=== PATIENT | male | born 1955 | race Caucasian/White ===

== ENCOUNTER 2018-02-09 08:33 | Outpatient (CLI) | payer MEDICARE ==
--- NOTE | 2018-02-09 14:59 | RAD ---
TWO VIEWS CHEST: Date: 02-09-18 Comparison: 10-06-16 History: Shortness of breath. FINDINGS: Cardiac silhouette is prominent and stable. Mild pulmonary vascular prominence is noted. There is no pneumothorax or pleural fluid. There is no focal consolidation or alveolar edema. There is multilevel thoracic spine disc space narrowing and anterior osteophyte formation. The lungs appear hyperinflated on the lateral view, a stable finding. IMPRESSION: Stable chronic findings as described above. POS: [facility]
== END 2018-02-09 08:34 | disposition home or self-care (01) ==
LOC: RAD 08:33
PROVIDERS: ATTEND Internal Medicine Pulmonary Disease
DX: R06.00 Dyspnea, unspecified (principal); I51.7 Cardiomegaly; M48.04 Spinal stenosis, thoracic region; M25.78 Osteophyte, vertebrae
CPT/HCPCS: 71046

== ENCOUNTER 2018-02-26 15:39 | Observation (INO) | payer MEDICARE ==
[2018-02-26 16:22] LABS: Mean Corpuscular HGB CONC 35.1 g/dL (32.0-36.0); Mean Corpuscular Volume 96.7 fL (78.0-98.0); Mean Platelet Volume 7.9 fL (7.4-10.4); Platelet Count 105 thou/uL (130-400); RBC Distribution Width 12.9 % (11.5-14.5); Red Blood Cell (RBC) Count 3.25 mill/uL (4.70-6.10); White Blood Cell (WBC) Count 2.5 thou/uL (4.8-10.8)
--- NOTE | 2018-02-26 16:23 | RAD ---
PORTABLE CHEST ONE VIEW: 02/26/18 at 3:22 p.m. HISTORY: Chest pain. FINDINGS/IMPRESSION: Comparison is made with exam of 10/06/16. The heart is enlarged. The aorta is tortuous. The lungs are well expanded without lobar consolidation , pneumothoraces, barak pulmonary edema or large effusions. POS: [facility]
[2018-02-26 16:42] LABS: Band 7 % (5-11); Lymphocytes 23 % (21-51); MDiff Complete? YES; Monocytes 13 % (0-10); Neutrophil 57 % (42-75); PLT Morphology Comment Appears Decreased
[2018-02-26 16:43] LABS: ALT (SGPT) 27 U/L (8-55); AST (SGOT) 34 U/L (5-34); Albumin 4.1 g/dL (3.4-4.8); Alkaline Phosphatase 37 U/L (40-150); Anion Gap 14 mmol/L (10-20); BUN (Urea Nitrogen) 25 mg/dL (8.4-25.7); CK (CPK) 255 U/L (30-200); Calc. Creatinine Clearance 0 mL/min (70-130); Calcium 9.7 mg/dL (7.8-10.44); Carbon Dioxide 22 mmol/L (23-31); Chloride 108 mmol/L (98-107); Estimated GFR-MDRD 54; Glucose 96 mg/dL (80-115); Lipase 63 U/L (8-78); Potassium 4.5 mmol/L (3.5-5.1); Protein, Total 7.1 g/dL (5.8-8.1); Sodium 139 mmol/L (136-145)
[2018-02-26 16:47] LABS: CKMB 0.6 ng/mL (0-6.6); Troponin I Less than 0.010 ng/mL (< 0.028)
[2018-02-26] MEDS ORDERED: Nitroglycerin 0.4 MG TAB (25 Tab Bottle) ONE (16:59)
[2018-02-26 19:02] LABS: Troponin I Less than 0.010 ng/mL (< 0.028)
[2018-02-26 20:10] VITALS: BMI 41.9
[2018-02-26] MEDS ORDERED: Ondansetron HCl/PF 4 MG/2 ML Vial IVP PRN (21:04)
[2018-02-26] MEDS ORDERED: Acetaminophen 325 MG TAB PO PRN (21:04)
[2018-02-26] MEDS ORDERED: Ondansetron ODT 4 MG TAB SL PRN (21:04)
[2018-02-26 21:54] LABS: Troponin I Less than 0.010 ng/mL (< 0.028)
[2018-02-27] MEDS ORDERED: Mag-Al 1200 mg/1200 mg/30 ML UDCUP PO PRN (00:07)
[2018-02-27] MEDS ORDERED: Senokot 8.6 MG TAB PO PRN (00:07)
[2018-02-27] MEDS ORDERED: Calcium Carbonate 500 MG ChewTAB PO PRN (00:07)
[2018-02-27] MEDS ORDERED: Bisacodyl 5 MG TAB PO PRN (00:07)
[2018-02-27 01:09] LABS: Troponin I 0.015 ng/mL (< 0.028)
[2018-02-27 05:04] LABS: ALT (SGPT) 27 U/L (8-55); AST (SGOT) 33 U/L (5-34); Albumin 4.2 g/dL (3.4-4.8); Alkaline Phosphatase 35 U/L (40-150); Anion Gap 14 mmol/L (10-20); BUN (Urea Nitrogen) 21 mg/dL (8.4-25.7); Bilirubin, Direct 0.4 mg/dL (0.1-0.3); Calc. Creatinine Clearance 138 mL/min (70-130); Calcium 9.5 mg/dL (7.8-10.44); Carbon Dioxide 22 mmol/L (23-31); Cardiac Risk 3.2 (Less than 4.5); Chloride 105 mmol/L (98-107); Cholesterol 136 mg/dl (< 200 Desired); Estimated GFR-MDRD 60; Glucose 124 mg/dL (80-115); HDL Cholesterol 42 mg/dL (>60 Neg Risk); LDL Cholesterol, Calculated 71 mg/dL; Potassium 4.1 mmol/L (3.5-5.1); Protein, Total 7.2 g/dL (5.8-8.1); Sodium 137 mmol/L (136-145); Triglycerides 116 mg/dL (Less than 150)
[2018-02-27 05:16] LABS: Band 14 % (5-11); Eosinophils 3 % (0-10); Hemoglobin 11.7 g/dL (14.0-18.0); Lymphocytes 16 % (21-51); MDiff Complete? YES; Mean Corpuscular HGB CONC 35.1 g/dL (32.0-36.0); Mean Corpuscular Hemoglobin 34.3 pg (27.0-31.0); Mean Corpuscular Volume 97.8 fL (78.0-98.0); Mean Platelet Volume 7.8 fL (7.4-10.4); Monocytes 11 % (0-10); Neutrophil 56 % (42-75); PLT Morphology Comment Appears Decreased; Platelet Count 106 thou/uL (130-400); Red Blood Cell (RBC) Count 3.42 mill/uL (4.70-6.10); White Blood Cell (WBC) Count 2.9 thou/uL (4.8-10.8)
[2018-02-27] MEDS ORDERED: Non-Formulary Item 1 EACH (Sitagliptin Phos/Metformin Hcl [Janumet] 1 TABLET) PO SCH (08:00)
--- NOTE | 2018-02-27 08:51 | ULT ---
COMPLETE ABDOMINAL ULTRASOUND: Date: 02/27/18 COMPARISON: None. HISTORY: Fatty liver with splenomegaly and ascites. TECHNIQUE: Multiplanar Anderson scale and color Doppler images were obtained in a complete abdominal ultrasound. FINDINGS: The liver is enlarged with increased echogenicity. No focal liver lesions seen. There is a small depe ndent area of shadowing in the gallbladder which may represent small gallstones. There is no gallblad cuco wall thickening or pericholecystic fluid. The common bile duct is normal measuring 4.0 mm. The aorta and inferior vena cava are normal in caliber. The spleen is enlarged, measuring 20.9 cm in length. The pancreas could not be seen secondary to bowel gas. Both kidneys are normal in echogenicity. There is a 7.0 mm calcification with shadowing in the left k idney. There is no evidence of hydronephrosis. The kidneys measure 12.5 and 11.8 cm in length on the right and left, respectively. IMPRESSION: 1. Hepatomegaly with increased echogenicity. This may be secondary to fatty liver versus fibrosis. 2. Splenomegaly. 3. Nonobstructing left renal calcification. 4. Possible cholelithiasis. POS: [facility]
--- NOTE | 2018-02-27 09:11 | ULT ---
BILATERAL LOWER EXTREMITY VENOUS ULTRASOUND: Date: 02/27/18 COMPARISON: None. HISTORY: Bilateral lower extremity tingling and intermittent right lower extremity pain. TECHNIQUE: Multiplanar Anderson scale and color Doppler images were obtained in a bilateral lower extremity venous u ltrasound. Spectral analysis of the Doppler waveforms were performed. FINDINGS: Bilateral common femoral veins, profunda femoral veins, superficial femoral veins, and popliteal vein s are normal in appearance without visible thrombus. These vessels demonstrate normal compression, fl ow, and augmentation. The posterior tibial veins and greater saphenous veins are also patent. IMPRESSION: No evidence of deep venous thrombosis. POS: [facility]
[2018-02-27] MEDS: metFORMIN 500 MG TAB PO SCH ×2 (10:11→17:22)
[2018-02-27] MEDS: Alogliptin 25 MG TAB PO SCH (10:12)
[2018-02-27] MEDS: Docusate 100 MG CAP PO SCH ×2 (10:12→21:41)
[2018-02-27] MEDS: Multivitamin W/ Minerals 1 TAB PO SCH (10:13)
[2018-02-27] MEDS: Aspirin 81 mg Enteric Coated Tablet PO SCH (10:13)
[2018-02-27] MEDS: Famotidine 20 MG TAB PO SCH ×2 (10:13→21:40)
[2018-02-27] MEDS: Clopidogrel Bisulfate 75 MG TAB PO SCH (10:13)
[2018-02-27] MEDS: Metoprolol Tartrate 50 MG TAB PO SCH (10:13)
[2018-02-27] MEDS: Isosorbide Mononitrate 20 MG TAB PO SCH ×2 (10:14→21:40)
[2018-02-27] MEDS: Heparin 5,000 UNITS/ML VIAL SC SCH ×3 (10:15→21:40)
[2018-02-27] MEDS: Pioglitazone HCl 45 MG TAB PO SCH (10:19)
--- NOTE | 2018-02-27 10:53 | CON ---
DATE OF CONSULTATION: 02/27/2018 REASON FOR CONSULTATION: Left upper quadrant pain and history of CAD, status post stent placement. HISTORY OF PRESENT ILLNESS: Mr. Quiros is a very pleasant 62-year-old gentleman whom I have seen and evaluated in the past. He has a history of a completely occluded right coronary artery, diagnosed in 2016. He also underwent successful stent placement to the circumflex artery. He also has severe st enosis present to the ostium of a diagonal branch. He has a patent stent within the LAD. He also un derwent a noninvasive stress study with a cardiac PET study in 11/2017 that showed scar to the inferi or wall with no ischemia along the lateral or anterior wall. He recently presented with shortness of breath and smothering type feeling well while he had his BiPA P on last evening. He states he had an episode of tachycardia. He then developed left upper quadran t pain. Pain he states has been reproducible and worse with deep breath. He described it as sharp. No other associated ameliorating or exacerbating factors present. PAST MEDICAL HISTORY: CAD as described above, diabetes mellitus, hypertension, hyperlipidemia, chron ic kidney disease, obesity. PAST SURGICAL HISTORY: Elbow surgery, stent placement. SOCIAL HISTORY: No current tobacco or alcohol use. FAMILY HISTORY: Negative for CAD. HOME MEDICATIONS: Actos, Janumet, Lovaza, Centrum Silver, metoprolol, isosorbide, TriCor, Plavix, at orvastatin, aspirin. REVIEW OF SYSTEMS: A 10 point review of systems reviewed and as above, otherwise negative. PHYSICAL EXAMINATION: GENERAL: Patient is a pleasant male who is in no acute distress. The patient appears his stated age . VITAL SIGNS: Blood pressure 156/71, pulse 61, temperature 98.3. NEUROLOGIC: The patient is alert and oriented times 3 with no focal neurologic deficits. HEENT: Sclerae without icterus. Mouth has moist mucous membranes with normal pallor. NECK: No JVD. Carotid upstroke brisk. No bruits bilaterally. LUNGS: Clear to auscultation with unlabored respirations. BACK: No scoliosis or kyphosis. CARDIAC: Regular rate and rhythm with normal S1 and S2. No S3 or S4 noted. No significant rubs, murmurs, thrills, or gallops noted throughout the precordium. PMI is not displaced. There is no parasternal heave. ABDOMEN: Soft, nontender, nondistended. No peritoneal signs present. No hepatosplenomegaly. No ab normal striae. Pain noted to moderate palpation in the left upper quadrant. EXTREMITIES: 2+ femoral and 2+ dorsalis pedis pulses. No cyanosis, clubbing, or edema. SKIN: No gross abnormalities. PERTINENT LABORATORY DATA: CK troponin negative, hemoglobin 11.7, creatinine 1.23. IMAGING DATA: EKG normal sinus rhythm and no significant ST wave changes suggesting ischemia. IMPRESSION: Atypical chest pain. RECOMMENDATIONS: Patient's symptoms are felt to be reproducible and worse with deep breath. The rem aining noted in the left upper quadrant. This was not felt to be cardiac. His stress study did not suggest ischemia, noted two months ago with a cardiac PET study which is a more accurate study than a sestamibi stress test. At this point, we would treat medically and seek a cause for his right upper quadrant pain. His last echo noted in the office was in 12/2017 and also showed a normal LVEF.
[2018-02-27] MEDS ORDERED: Furosemide 20 MG/2 ML VIAL SLOW IVP SCH (12:15)
[2018-02-27 12:34] LABS: INR-International Normal Ratio 1.2
--- NOTE | 2018-02-27 13:28 | PDOC.EVN ---
Event Note - Event Note Event Note: h&p [id number]
--- NOTE | 2018-02-27 13:41 | PDOC.PN ---
- Subjective Encounter Start Date: 02/27/18 Encounter Start Time: 13:40 Subjective: nsg notes rev, denny ovn, still has discomfort under L ribcage -: still easily fatigued, feels no different from yesterday, is worried he has -: cancer like his brother who was just dx with lung ca and had similar ssx - Objective Resuscitation Status: Resuscitation Status FULL:Full Resuscitation Vital Signs & Weight: Vital Signs (12 hours) Temp Pulse Resp BP BP BP BP 02/27/18 11:10 98.2 F 57 L 20 134/62 02/27/18 10:33 02/27/18 08:25 98.3 F 61 20 02/27/18 07:47 98.3 F 61 20 156/71 H 02/27/18 03:54 150/68 H 164/74 H 153/68 H 02/27/18 03:15 98.9 F 69 18 159/73 H Pulse Ox 02/27/18 11:10 95 02/27/18 10:33 95 02/27/18 08:25 02/27/18 07:47 95 02/27/18 03:54 02/27/18 03:15 96 Weight Weight 344 lb 6.4 oz I&O: 02/26/18 02/27/18 02/28/18 06:59 06:59 06:59 Intake Total 500 240 Output Total 1300 Balance -800 240 Result Diagrams: 02/27/18 04:10 02/27/18 04:10 Additional Labs: Accuchecks 02/27/18 02/27/18 02/26/18 11:14 03:08 20:40 POC Glucose 116 H 68 L 88 Phys Exam - Physical Examination Constitutional: NAD lying in hospital bed HEENT: moist MMs Respiratory: no wheezing, no rales, no rhonchi, clear to auscultation bilateral Cardiovascular: RRR, no significant murmur, no rub Gastrointestinal: soft, positive bowel sounds 1 1+ b/l LE Neurological: moves all 4 limbs Psychiatric: normal affect, A&O x 3 Dx/Plan - Plan * L sided chest pressure * likely non cardiac given multiple recent o/p evaluations -apprec cardiology c/ s * continue home regimen for known hx of CAD * * fatigability * unclear etiology - would recommend walking prgm, ICS in the interim * will r/o PE with V/Q 2/2 recent renal insufficienc * * renal insuff * appears somewhat improved @ this point in time, continue to monitor * trial lasix x1 due to 20lb wt gain in past 2 wks * * hepatomegaly * unclear etiology - check synthetic fxn (INR), hepatitis panel * may benefit from outpatient GI eval ? bx warranted * * splenomegaly * chronic, has been a known issue * accompanied by chronic low grade pancytopenia for which he went to see heme/ onc last year * * diet: cardiac * activity as blayne * dvt ppx Review of Systems - Medications/Allergies Allergies/Adverse Reactions: Allergies Allergy/AdvReac Type Severity Reaction Status Date / Time codeine Allergy Intermediate Hives Verified 02/26/18 20:08 Medications: Current Medications Al Hydroxide/Mg Hydroxide (Maalox) 30 ml PO Q6H PRN PRN Reason: Heartburn or Indigestion Alogliptin Benzoate (Alogliptin) 25 mg PO DAILY [facility] Last Admin: 02/27/18 10:12 Dose: 25 mg Aspirin (Ecotrin) 81 mg PO DAILY [facility] Last Admin: 02/27/18 10:13 Dose: 81 mg Atorvastatin Calcium (Lipitor) 40 mg PO HS [facility] Bisacodyl (Dulcolax) 10 mg PO DAILYPRN PRN PRN Reason: Constipation Calcium Carbonate (Tums) 1,000 mg PO Q4H PRN PRN Reason: Heartburn or Indigestion Clopidogrel Bisulfate (Plavix) 75 mg PO DAILY [facility] Last Admin: 02/27/18 10:13 Dose: 75 mg Docusate Sodium (Colace) 100 mg PO BID [facility] Last Admin: 02/27/18 10:12 Dose: Not Given Famotidine (Pepcid) 20 mg PO BID [facility] Last Admin: 02/27/18 10:13 Dose: 20 mg Fenofibrate (Tricor) 145 mg PO HS [facility] Furosemide (Lasix) 20 mg SLOW IVP NOW [facility] Stop: 02/27/18 14:15 Last Admin: 02/27/18 12:49 Dose: 20 mg Heparin Sodium (Porcine) (Heparin) 5,000 units SC TID [facility] Last Admin: 02/27/18 10:15 Dose: Not Given Iron/Minerals/Multivitamins (Theragran M) 1 tab PO DAILY [facility] Last Admin: 02/27/18 10:13 Dose: 1 tab Isosorbide Mononitrate (Ismo) 20 mg PO BID [facility] Last Admin: 02/27/18 10:14 Dose: 20 mg Metformin HCl (Glucophage) 1,000 mg PO BID[facility] Last Admin: 02/27/18 10:11 Dose: 1,000 mg Metoprolol Tartrate (Lopressor) 50 mg PO DAILY [facility] Last Admin: 02/27/18 10:13 Dose: 50 mg ([place]-3 Acid Ethyl Esters [Lovaza] 1 Gm ) Caps 2 each PO BID [facility] Pioglitazone HCl (Actos) 45 mg PO DAILY [facility] Last Admin: 02/27/18 10:19 Dose: 45 mg Senna (Senokot) 2 tab PO HSPRN PRN PRN Reason: Constipation
--- NOTE | 2018-02-27 14:18 | HP ---
CHIEF COMPLAINT: Fatigue. HISTORY OF PRESENT ILLNESS: This is a 62-year-old male with a known history of coronary artery disea se, status post percutaneous coronary intervention x3, hypertension, hyperlipidemia, pancytopenia of unclear etiology, who presents with a chief complaint of fatigue. It appears that, with prior provid ers, the patient had a complaint of chest pain, but in my discussion with the patient, he complains p redominantly of fatigue accompanied by shortness of breath. He did have 1 episode of lower left ches t/left-sided epigastrium discomfort the night before presentation, which improved with Tums usage and then quickly resumed. The patient denies any recent injury to the area. Denies any recent similar episodes of this discomfort, which he describes as pressure-like. At the time of my evaluation, the pressure, however, is gone. The patient is predominantly concerned about fatigue over the last 2 day s in conjunction with a 20-pound weight gain. REVIEW OF SYSTEMS: As per HPI. Constitutional: The patient estimates an approximately 20-pound clayton ght gain over the last 2 weeks. He states that one of his providers prescribed Lasix, which he tried , but he did not seem to urinate more and so he discontinued that medication. The patient denies any fevers or chills or other recent infections that he is aware of. HEENT: Denies any headache, visio n changes, lightheadedness, or dizziness. Cardiovascular: Please see the discussion above. No dysp mindy with exertion, mostly predominantly fatigue. Respiratory: No congestion. No cough. Gastrointe stinal: Denies any nausea, vomiting, discomfort as described above. No issues with diarrhea or cons tipation. Genitourinary: Denies any dysuria, change in urinary frequency, quality, or quantity. PAST MEDICAL HISTORY: As per above. 1. Prior history of coronary artery disease, status post percutaneous coronary intervention x3. 2. Hypertension. 3. Hyperlipidemia. 4. Obesity. 5. Status post appendectomy. 6. Status post coronary artery bypass grafting. 7. Status post left shoulder replacement. 8. A known history of splenomegaly with an unknown etiology. 9. Known history of pancytopenia, for which he went to go see Oncology, currently does not have a di agnosis. 10. Status post metatarsal amputation, multiple. HOME MEDICATIONS: Please see the EMR for full details, includes the following, sitagliptin/metformin 1 tab p.o. b.i.d. This is the brand name, Héctor. Pioglitazone 45 mg p.o. daily, omega-3 acid 2 gr ams p.o. b.i.d., multivitamin 1 tab p.o. daily, metoprolol tartrate 50 mg p.o. daily, isosorbide mono nitrate 20 mg p.o. b.i.d., fenofibrate 160 mg p.o. at bedtime, clopidogrel 75 mg p.o. daily, atorvast atin 40 mg p.o. at bedtime, aspirin 81 mg p.o. daily. ALLERGIES: Include CODEINE, which causes hives. FAMILY HISTORY: Significant for cardiovascular disease in multiple family members and a brother, who was recently diagnosed with a lung cancer. SOCIAL HISTORY: Patient is , lives with his . Denies any active tobacco, alcohol, or eriberto g use. It appears that he has a prior history of tobacco use. The patient indicates his would be his medical decision maker if he is unable to make his own medical decisions and indicates that he wishes to be FULL CODE at this point in time. PHYSICAL EXAMINATION: GENERAL: The patient is awake, alert, appropriate, in no acute distress, lying in the hospital bed. HEENT: Normocephalic, atraumatic. Equal ocular motions are intact. Slightly dry mucous membranes. CARDIOVASCULAR: S1 and S2. No murmurs, rubs, or gallops. Pulses 2+ bilateral upper extremities, 1+ bilateral pitting pedal edema. RESPIRATORY: Reasonable air movement. No conversational dyspnea. No wheezes, no rales, no rhonchi, and grossly clear to auscultation otherwise. ABDOMEN: Positive bowel sounds, soft, nontender to palpation. MUSCULOSKELETAL: Moving all 4 extremities. Able to self-reposition in the bed without difficulty or assistance. Noted that the patient has undergone several metatarsal amputations, LABORATORY DATA AND IMAGING: WBC 2.5, hemoglobin 11.0, hematocrit 31.4, platelets 105. Sodium 139, potassium 4.5, chloride 108, bicarbonate 22, BUN 25, creatinine 1.33, glucose 96, calcium 9.7, total bilirubin 1.0, AST 34, ALT 27, alkaline phosphatase 37. Creatine kinase 255, troponin less than 0.01 . Brain natriuretic peptide 216.8. Total protein 7.1, albumin 4.1. Triglycerides 116, cholesterol 136, LDL 71, HDL 42, lipase of 63. On 02/26/2018, chest x-ray, impression, "heart is enlarged. The aorta is tortuous. The lungs are well expanded without lobar consolidation, pneumothoraces, barak pu lmonary edema, or large effusions." ASSESSMENT AND PLAN: This is a 62-year-old male with a known history of coronary artery disease, who initially presented with more than 1 complaint, but chief among them are fatigability and chest pain . 1. Chest pain: Patient does not seem to endorse this is the primary reason for his presentation. H owever, the patient does have a significant cardiac history. We will trend troponins, maintain the p atient on telemetry, check an echocardiogram in the a.m., repeat an EKG in the a.m., and consult Card iology. We will continue the patient on his home regimen, otherwise. 2. Easy fatigability. Concerned that the patient has also had a 20-pound weight gain, whether or no t he has a component of "fluid overload." We will also obtain an ultrasound of the abdomen as the pa tient is collecting fluid. It does not appear to be in the form of pulmonary edema at this point in time. The patient states that his bilateral lower extremity swelling is no different from usual. An echocardiogram, as described above. 3. History of splenomegaly, unclear significance. We will continue to monitor. 4. Acute kidney injury without known history of renal disease. We will continue to closely monitor. Repeat basic metabolic panel in the a.m. 5. The patient complained of shortness of breath. See the discussion above. 6. Also, obtain a Doppler of the bilateral lower extremity and a ventilation perfusion scan due to c oncern of acute kidney injury already preexisting in this patient. Evaluate and rule out for deep ve nous thrombosis and/or pulmonary embolism, also because the patient did mention that he has been havi ng cramping that happens occasionally in his right lower extremity, particularly behind his kneecap. 7. Diet: As tolerated. 8. Activity as tolerated. 9. Deep venous thrombosis prophylaxis with heparin.
[2018-02-27 15:21] LABS: HBCM Index 0.08 S/CO (0-0.79); Hep A IgM AB Non-Reactive (NonReactive); Hep A IgM S/CO 0.12 S/CO (0-0.79); Hep B Surf Ag Non-Reactive S/CO (NonReactive); Hep C IgG Ab Non-Reactive (NonReactive); Hep C Index 0.09 S/CO (0-0.79); Hepatitis B Core IGM Abs Non-Reactive (NonReactive)
--- NOTE | 2018-02-27 16:47 | NM ---
RADIONUCLIDE PERFUSION ONLY LUNG SCAN: 02/27/18 HISTORY: Dyspnea. FINDINGS: Ventilation images unable to be acquired. Good uptake of radiotracer throughout each lung without segmental or lower segmental perfusion defect . IMPRESSION: No scintigraphic evidence of pulmonary embolus. POS: [facility]
[2018-02-27] MEDS ORDERED: Atorvastatin Calcium 40 MG TAB PO SCH (21:00)
[2018-02-27] MEDS ORDERED: Fenofibrate Nanocrystallized 145 MG TAB PO SCH (21:00)
[2018-02-27] MEDS: Fish Oil 1,000 MG CAP PO SCH (21:40)
[2018-02-28 06:12] LABS: ALT (SGPT) 22 U/L (8-55); AST (SGOT) 29 U/L (5-34); Albumin 3.9 g/dL (3.4-4.8); Alkaline Phosphatase 31 U/L (40-150); Anion Gap 15 mmol/L (10-20); BUN (Urea Nitrogen) 21 mg/dL (8.4-25.7); Bilirubin, Direct 0.4 mg/dL (0.1-0.3); Bilirubin, Total 1.2 mg/dL (0.2-1.2); Calc. Creatinine Clearance 132 mL/min (70-130); Carbon Dioxide 21 mmol/L (23-31); Chloride 106 mmol/L (98-107); Estimated GFR-MDRD 59; Glucose 86 mg/dL (80-115); Potassium 3.9 mmol/L (3.5-5.1); Protein, Total 6.8 g/dL (5.8-8.1); Sodium 138 mmol/L (136-145)
[2018-02-28 06:42] LABS: Band 15 % (5-11); Eosinophils 2 % (0-10); Hemoglobin 11.4 g/dL (14.0-18.0); Lymphocytes 23 % (21-51); MDiff Complete? YES; Mean Corpuscular HGB CONC 33.8 g/dL (32.0-36.0); Mean Corpuscular Hemoglobin 33.1 pg (27.0-31.0); Mean Corpuscular Volume 98.1 fL (78.0-98.0); Mean Platelet Volume 8.3 fL (7.4-10.4); Monocytes 17 % (0-10); Neutrophil 43 % (42-75); PLT Morphology Comment Appears Decreased; Platelet Count 106 thou/uL (130-400); RBC Distribution Width 13.1 % (11.5-14.5); Red Blood Cell (RBC) Count 3.42 mill/uL (4.70-6.10); White Blood Cell (WBC) Count 2.2 thou/uL (4.8-10.8)
[2018-02-28 06:45] LABS: Folate (Folic Acid) 11.3 ng/mL (7.0-31.4)
[2018-02-28] MEDS: Multivitamin W/ Minerals 1 TAB PO SCH (09:14)
[2018-02-28] MEDS: Pioglitazone HCl 45 MG TAB PO SCH (09:14)
[2018-02-28] MEDS: Famotidine 20 MG TAB PO SCH (09:14)
[2018-02-28] MEDS: Heparin 5,000 UNITS/ML VIAL SC SCH (09:15)
[2018-02-28] MEDS: Isosorbide Mononitrate 20 MG TAB PO SCH (09:15)
[2018-02-28] MEDS: Docusate 100 MG CAP PO SCH (09:15)
[2018-02-28] MEDS: Alogliptin 25 MG TAB PO SCH (09:15)
[2018-02-28] MEDS: metFORMIN 500 MG TAB PO SCH (09:15)
[2018-02-28] MEDS: Metoprolol Tartrate 50 MG TAB PO SCH (09:15)
[2018-02-28] MEDS: Clopidogrel Bisulfate 75 MG TAB PO SCH (09:15)
[2018-02-28] MEDS: Aspirin 81 mg Enteric Coated Tablet PO SCH (09:16)
[2018-02-28] MEDS: Fish Oil 1,000 MG CAP PO SCH (09:16)
[2018-02-28 11:32] VITALS: BP 122/58; TEMP 98.2
--- NOTE | 2018-02-28 13:31 | CON ---
DATE OF CONSULTATION: 02/28/2018 HISTORY OF PRESENT ILLNESS: This is a 62-year-old male who was admitted with fatigue, shor tness of breath and chest pain. He was found to be pancytopenic, the reason for this consultation. The patient has been evaluated in the past by Dr. Fall and Dr. Grace Eckert for pancytopenia. In 08/2015, his WBC was 3100, hemoglobin 11.8, and platelet count 123,000. He had a liver and spleen u ltrasound showing a spleen of [address] Eckert saw him in 08/2015 and her impression was that the pa ramses had fatty liver with splenomegaly secondary to liver disease. The patient denies bleeding from any site. He does feel weak and tired and has gained weight recently. PAST MEDICAL HISTORY: Coronary artery disease, status post percutaneous coronary intervention x3, hy pertension, hyperlipidemia, and obesity. PAST SURGICAL HISTORY: Include coronary artery bypass graft surgery, appendectomy, left shoulder rep lacement, and amputation of metatarsal bones. OUTPATIENT MEDICATIONS: Sitagliptin/metformin 1 p.o. b.i.d., pioglitazone 45 mg p.o. daily, omega 3, multivitamin, metoprolol 50 mg daily, isosorbide mononitrate 20 mg p.o. b.i.d., fenofibrate 160 mg a t bedtime, Plavix 75 mg p.o. daily, atorvastatin 40 mg p.o. daily and aspirin 81 mg p.o. daily. DRUGS WITH ADVERSE EFFECT: CODEINE which causes hives. PERSONAL, FAMILY AND SOCIAL HISTORY: The patient lives with his . He is disabled. He does not smoke and does not drink. He is reasonably active physically at home. There is family history of kandis ng cancer in his brother. REVIEW OF SYSTEMS: As above. PHYSICAL EXAMINATION: GENERAL: The patient appears appropriate for his age and is alert and oriented. VITAL SIGNS: Height 6 feet 4 inches, weight 235 pounds, pulse 55, respirations 20, and blood pressur e 122/58. HEENT: Unremarkable. EYES: Extraocular movements intact. Pupils equal in size. NECK: No thyromegaly. LYMPH NODES: Not palpable in cervical, supraclavicular, axillary and inguinal areas. SKIN: No petechiae. No purpuric spots. CHEST: No deformity. LABORATORY DATA: CBC shows WBC of 2200 with hemoglobin of 11.4 grams, and platelet count of 106,000. Differential shows 58% granulocytes, 20% lymphocytes, and 17% monocytes. Chemistry profile is esse ntially negative. Liver enzymes and bilirubin are also normal. Protime is 15.0 with INR of 1.2. He patitis A, B, and C are nonreactive. Ultrasound of the abdomen shows hepatomegaly with increased ech ogenicity, raising the possibility of fatty liver. The size of the liver is not specified by the rad iologist. The spleen is enlarged at 20.9 cm. ASSESSMENT AND RECOMMENDATIONS: This patient's hematologic abnormalities are secondary to splenomega ly which is because of liver disease. His blood counts are not low enough to cause any issues at thi s time. He does need to be followed by Dr. Eckert and I have asked the patient to make appointment wi th Dr. Eckert. Hematology follow up will be optional at this stage. Thanks very much for allowing me to participate in this patient's care.
--- NOTE | 2018-03-06 14:52 | EKG ---
Test Reason : CHEST PAIN Blood Pressure : / mmHG Vent. Rate : 063 BPM Atrial Rate : 063 BPM P-R Int : 206 ms QRS Dur : 104 ms QT Int : 436 ms P-R-T Axes : 025 060 052 degrees QTc Int : 446 ms Sinus rhythm Normal ECG Confirmed by RO AVENDANO, FRANCOIS Luevano ([id number]), features editor MESERET BARBOSA ([id number]) on 03/06/2018 2:52:21 PM Referred By: Confirmed By:FRANCOIS STARR MD
== END 2018-02-28 14:49 | disposition home or self-care (01) ==
LOC: ERS 15:39 → 2SW 19:34
PROVIDERS: ADMIT Internal Medicine; ATTEND Internal Medicine
DX: R53.83 Other fatigue (principal); R07.89 Other chest pain; I25.10 Atherosclerotic heart disease of native coronary artery without angina pectoris; E78.5 Hyperlipidemia, unspecified; D61.818 Other pancytopenia; I12.9 Hypertensive chronic kidney disease with stage 1 through stage 4 chronic kidney disease, or unspecified chronic kidney disease; N18.9 Chronic kidney disease, unspecified; N17.9 Acute kidney failure, unspecified; R16.2 Hepatomegaly with splenomegaly, not elsewhere classified; E66.9 Obesity, unspecified; Z68.41 Body mass index [BMI] 40.0-44.9, adult; Z79.84 Long term (current) use of oral hypoglycemic drugs; Z79.02 Long term (current) use of antithrombotics/antiplatelets; Z79.82 Long term (current) use of aspirin; Z79.899 Other long term (current) drug therapy; Z88.5 Allergy status to narcotic agent; Z95.5 Presence of coronary angioplasty implant and graft
CPT/HCPCS: 71045; 76700; 78451; 80048 ×2; 80053; 80061; 80074; 80076 ×2; 82550; 82553; 82607; 82746; 82962 ×3; 83690; 83880; 84484 ×3; 85007; 85025 ×2; 85027; 85610; 93005; 93306; 93970; 94760 ×2; 96374; 97116; 97139 ×2; 99285; A9540; A9558; G0378 ×2; G8978; G8979; G8980; 36415; 36416; 85060; J1644; J1940

== ENCOUNTER 2018-06-15 09:37 | Observation (INO) | payer MEDICARE ==
[2018-06-14 14:21] VITALS: BMI 42.5
[2018-06-15] MEDS ORDERED: CEFAZOLIN 2 GM/50 ML BAG ONE (11:02)
[2018-06-15 11:07] LABS: #Eosinphils 0.1 thou/uL (0.0-0.7); #Lymphocytes 0.7 thou/uL (1.20-3.40); #Monocytes 0.4 thou/uL (0.11-0.59); #Neutrophils 1.9 thou/uL (1.40-6.50); %Basophils 0.1 % (0.0-1.0); %Eosinophils 2.1 % (0.0-10.0); %Lymphocytes 23.8 % (21.0-51.0); %Neutrophils 61.9 % (42.0-75.0); Mean Corpuscular Hemoglobin 32.7 pg (27.0-31.0); Mean Platelet Volume 8.1 fL (7.4-10.4); Platelet Count 130 thou/uL (130-400); Red Blood Cell (RBC) Count 3.38 mill/uL (4.70-6.10)
[2018-06-15 11:29] LABS: Anion Gap 12 mmol/L (10-20); BUN (Urea Nitrogen) 22 mg/dL (8.4-25.7); Calc. Creatinine Clearance 148 mL/min (70-130); Carbon Dioxide 24 mmol/L (23-31); Chloride 110 mmol/L (98-107); Estimated GFR-MDRD 64; Glucose 106 mg/dL (80-115); Potassium 4.3 mmol/L (3.5-5.1); Sodium 142 mmol/L (136-145)
[2018-06-15 11:33] LABS: Bilirubin Negative (Negative); Blood, Urine Negative (Negative); Clarity CLEAR (Clear); Glucose, Urine (Dipstick) Negative (Negative); Leukocyte Negative (Negative); Nitrite Negative (Negative); Protein, Urine (Dipstick) Negative (Neg-Trace); Specific Gravity, Urine 1.021 (1.002-1.036); pH, Urine 5.5 (5.0-9.0)
[2018-06-15 11:35] LABS: Bacteria/HPF None Seen HPF (None Seen); Hyaline Casts/LPF 0-3 HYALINE CAST LPF (0-3 Hyaline); RBC/HPF 0-3 HPF (0-3); Squamous Epithelial None Seen HPF (0-3); WBC/HPF 0-3 HPF (0-3)
--- NOTE | 2018-06-15 12:19 | RAD ---
CHEST TWO VIEWS: Comparison: 01-24-16 History: Pre-operative exam. FINDINGS: Slight elevation of the aorta. Normal cardiac silhouette. The pulmonary vessels and hilum are normal. Costophrenic angles are clear. Hyperinflation without consolidation or mass. No pneumothorax or osse ous abnormality. IMPRESSION: No acute cardiopulmonary process. POS: [facility]
[2018-06-15] MEDS ORDERED: Fentanyl 250 MCG/5 ML VIAL ONE (12:37)
[2018-06-15] MEDS ORDERED: Bupivacaine PF 0.5% 30 ML VIAL ONE (12:40)
[2018-06-15] MEDS ORDERED: Betamet Acet/Betamet Na Ph 30 MG/5 ML VIAL ONE (12:40)
[2018-06-15] MEDS ORDERED: Rocuronium Bromide 50 MG/5 ML VIAL ONE (14:58)
[2018-06-15] MEDS ORDERED: Glycopyrrolate 0.2 MG/ML 5 ML SYRINGE ONE (16:36)
[2018-06-15] MEDS ORDERED: ePHEDrine/0.9% NaCl/PF SYRINGE 50 mg/10 ml ONE (16:36)
[2018-06-15] MEDS ORDERED: Ondansetron PF 4 MG/2 ML Vial ONE (16:36)
[2018-06-15] MEDS ORDERED: PHENYLEPHRINE-NS 100 MCG/ML 10 ML SYRINGE ONE (16:36)
[2018-06-15] MEDS ORDERED: PROPOFOL 200 MG/20 ML VIAL ONE (16:36)
[2018-06-15] MEDS ORDERED: Lidocaine 1% PF 5 ML VIAL ONE (16:36)
[2018-06-15] MEDS ORDERED: Ketorolac Tromethamine 30 MG/ML VIAL ONE (16:36)
[2018-06-15] MEDS ORDERED: Fentanyl 100 MCG/2 ML VIAL ONE ×2 (16:56→17:36)
[2018-06-15] MEDS ORDERED: traMADol HCl 50 MG TAB PO PRN (17:16)
[2018-06-15] MEDS ORDERED: Fentanyl 100 MCG/2 ML VIAL SLOW IVP PRN (17:16)
[2018-06-15] MEDS ORDERED: Milk Of Magnesia 30 ML UDCUP PO PRN (17:16)
[2018-06-15] MEDS ORDERED: Bisacodyl 10 MG SUPP PR PRN (17:16)
[2018-06-15] MEDS ORDERED: Morphine 4 MG/ML VIAL SLOW IVP PRN (17:16)
[2018-06-15] MEDS ORDERED: HYDROcodone/Acetaminophen 5/325 mg Tablet PO PRN (17:16)
[2018-06-15] MEDS ORDERED: Ondansetron PF 4 MG/2 ML Vial IV PRN (17:16)
[2018-06-15] MEDS ORDERED: Acetaminophen/Codeine 30-300mg Tablet PO PRN (17:16)
[2018-06-15] MEDS ORDERED: RENALLY ADJUST ANTIBIOTICS FS SCH (17:30)
[2018-06-15] MEDS ORDERED: Ketorolac Tromethamine 30 MG/ML VIAL IVP SCH (18:00)
[2018-06-15] MEDS: Aspirin 81 mg Enteric Coated Tablet PO SCH (20:59)
[2018-06-15] MEDS: Ketorolac Tromethamine 30 MG/ML VIAL IVP SCH (20:59)
[2018-06-15] MEDS ORDERED: Atorvastatin Calcium 40 MG TAB PO SCH (21:00)
[2018-06-15] MEDS ORDERED: TETANUS AND DIPHTHERIA TOX/PF 0.5 ML DISP.SYRIN IM SCH (21:00)
[2018-06-15] MEDS ORDERED: Fenofibrate Nanocrystallized 145 MG TAB PO SCH (21:00)
[2018-06-15] MEDS: Vancomycin HCl 1 GM in Premix Bag 1 BAG IVPB SCH (21:00)
[2018-06-16] MEDS: Ketorolac Tromethamine 30 MG/ML VIAL IVP SCH ×3 (05:29→16:31)
[2018-06-16] MEDS: Aspirin 81 mg Enteric Coated Tablet PO SCH (08:22)
[2018-06-16] MEDS: Alogliptin 25 MG TAB PO SCH ×2 (08:23→16:33)
[2018-06-16] MEDS: metFORMIN 500 MG TAB PO SCH ×2 (08:24→16:33)
[2018-06-16] MEDS: Vancomycin HCl 1 GM in Premix Bag 1 BAG IVPB SCH (08:24)
[2018-06-16] MEDS ORDERED: Fish Oil 1,000 MG CAP PO SCH (09:00)
[2018-06-16] MEDS ORDERED: Pioglitazone HCl 45 MG TAB PO SCH (09:00)
[2018-06-16] MEDS ORDERED: Metoprolol Tartrate 50 MG TAB PO SCH (09:00)
[2018-06-16] MEDS ORDERED: Aspirin 81 mg Enteric Coated Tablet PO SCH (09:00)
[2018-06-16] MEDS ORDERED: Clopidogrel Bisulfate 75 MG TAB PO SCH (09:00)
[2018-06-16] MEDS ORDERED: Multivitamin W/ Minerals 1 TAB PO SCH (09:00)
[2018-06-16 15:51] LABS: Vancomycin, Random 10.8 ug/mL (See Comment)
[2018-06-16 16:19] VITALS: BP 113/52; TEMP 97.8
--- NOTE | 2018-06-18 10:36 | OP ---
DATE OF PROCEDURE: 06/15/2018 PREOPERATIVE DIAGNOSES: 1. Guyon canal left ulnar nerve compression. 2. Carpal tunnel syndrome/median nerve compression of the wrist. 3. Severe cubital tunnel syndrome with early stage 3 Ford changes. POSTOPERATIVE DIAGNOSES: 1. Guyon canal left ulnar nerve compression. 2. Carpal tunnel syndrome/median nerve compression of the wrist. 3. Severe cubital tunnel syndrome with early stage 3 Ford changes. 4. Olecranon bursitis findings during surgical dissection at the elbow. PROCEDURES PERFORMED: 1. Right carpal tunnel syndrome. 2. Right Guyon canal release/ulnar nerve neuroplasty of the wrist. 3. Right ulnar nerve decompression elbow with submuscular transposition. 4. Radical olecranon bursectomy, right elbow region. SPECIMEN SENT: The bursectomy tissue from the olecranon bursectomy elbow. ESTIMATED BLOOD LOSS: 20 mL. TOURNIQUET TIME: 105 minutes total. FINDINGS: Cubital tunnel shows severe flattening of the ulnar nerve over almost a 6 cm section including proximal through the cubital tunnel and into the flexor head confluence. At the carpal tunnel, very tight area with 1.5 cm allograft formation at distal aspect of the carpal canal. DESCRIPTION OF PROCEDURE: After successful general LMA technique, the limb was prepped and draped. He had a total of 30 mL Marcaine given to him provided with 10 in the distal incision and 20 in the proximal incision before an incision was made. Time-out was done appropriately identifying the surgical site asia, the extremity prep, the records preop and the consent all showing these 3 procedures need to be done on the right side. We first approached the distal aspect of the limb by creating a lazy S incision connecting the standard carpel tunnel incision with a small transverse at the wrist palmar flexion crease and then a 3 cm portion to identify ulnar nerve. We carried this to the skin and subcutaneous tissue, so we created progressive flap. We then identified the ulnar nerve about 2 cm proximal to Guyon canal, began to release it and see the neurovascular bundle until we got in the Guyon canal, where it was some tight thickening area just at the pisiform level. We then coursed 2.5 cm distal until we could see the bifurcation as well as protecting the artery while it wasreleased. We then extended the incision somewhat radially towards the transverse carpal ligament and here, we were able to localize transverse carpal ligament. We again released the proximal palmar flexion crease under direct visualization with Gunnison blade. We got to the distal half, it was very tight on the median nerve. Once we released it, we saw a type 1 median nerve motor take off, which was fair and that there was an allograft formation over 1.5 cm area of the early stippling. We placed 2 mL of Celestone in this wound, deflated the tourniquet to obtain hemostasis. We then closed this with simple 4-0 nylon in interrupted mattress pattern. We then re-exsanguinated the limb, but kept the same amount of time having been less than 20 minutes and so the times became adequate. We inflated the tourniquet at 250 mmHg pressure, then began a midline incision only slightly medialized to avoid placing the incision over olecranon and then carried proximal to the olecranon fossa. We then dissected subcutaneous tissue, and the medial flap was now large enough that the antebrachial and percutaneous nerves were within the skin flap and spared, but when we began to release the radial flap we noticed a very thick bursa especially over the olecranon itself, so we performed a radical olecranon bursectomy. This allowed better visualization and got rid of false inflammatory tissue. We then dissected proximal to the medial epicondyle, where we discovered the ulnar nerve in conjunction with triceps. We again released it at least 15 cm proximal to the cubital tunnel what we saw was very tight area of the intermuscular septum, and beginning approximately 5 cm proximal to medial epicondyle, then with the area where the nerve was highly flattened, started to become stippled and felt it was compressed. The compression lasted into the cubital tunnel itself. We then released the primary cover of the cubital tunnel, released the fascia with 2 heads of the flexors, spared the flexor origin nerve branches from the ulnar nerve. We then now dissected the subcutaneous tissue over medial epicondyle, we had completely freed the nerve on ulnar side, so that it could be transposed almost 2.5 cm anteriorly. We noticed the intermuscular septum again when we made a transposition, which was potentially over the nerve, so we pushed the nerve back to its [place] bed with DeBakey atraumatic forceps, released the intermuscular septum from the insertion on the superior posterior medial epicondyle, and then took a 1 cm wide swath and released it all the way up to the very top of the wound, which was 15 cm and then removed it. We did not do a neurovascular damage with this and then this allowed transposition without the edge of any fascia impinging on the ulnar nerve. We made a Z-plasty with both rounds of being almost 15 mm wide as this somewhat had a very large insertion foot print. We lifted this up off the bed, spared the collateral ligament which was intact below, slowly released until the flap could be elevated almost 4 cm. Then, we transposed the nerve into the bed created by this cut, and there was no undue tension either in entrance or exit portion of this construct. We placed 3 mL of Celestone on this nerve portion we transposed in a drip technique and then we transposed the nerve. We closed the transposed origin back with six #1 Ethibond using the OS-4 needle interrupted mattress type pattern. The patient then left the operating room without evidence of anesthetic complication. It must be noted that with doing the dissection, we removed the entire olecranon bursa with the stick, had inflammatory fluid of pink nature escaping and bursectomy involved 0.5 cm distal to olecranon with 2.5 cm proximal, was equally taken medial and lateral. This was sent as specimen to lab. Tourniquet was deflated, hemostasis obtained, we closed the epidermis in excellent fashion with a running 3-0 Monocryl and then once we done this, we had no skin or epidermal separation or deviation and we then placed Steri-Strips here. Bulky dressing was applied to both sides including Adaptic, 4x4, Kerlix, and then a long arm splint in approximately 70 degrees of flexion and the patient left the operating room without complications until could be picked up by his family after surgery in the long arm splint. Job ID: [id number]
== END 2018-06-16 18:09 | disposition home or self-care (01) ==
LOC: SDC 09:37 → SURG B 17:16
PROVIDERS: ADMIT Orthopaedic Surgery Hand Surgery; ATTEND Orthopaedic Surgery Hand Surgery
PROC: 01N50ZZ Release Median Nerve, Open Approach (ICD-10-PCS; principal; 2018-06-15)
PROC: 0MB30ZZ Excision of Right Elbow Bursa and Ligament, Open Approach (ICD-10-PCS; 2018-06-15)
PROC: 01N40ZZ Release Ulnar Nerve, Open Approach (ICD-10-PCS; 2018-06-15)
DX: M71.521 Other bursitis, not elsewhere classified, right elbow (principal); G56.21 Lesion of ulnar nerve, right upper limb; G56.01 Carpal tunnel syndrome, right upper limb; I25.10 Atherosclerotic heart disease of native coronary artery without angina pectoris; E11.9 Type 2 diabetes mellitus without complications; I10 Essential (primary) hypertension; E78.5 Hyperlipidemia, unspecified; I25.2 Old myocardial infarction; Z87.891 Personal history of nicotine dependence; Z79.02 Long term (current) use of antithrombotics/antiplatelets; Z79.82 Long term (current) use of aspirin; Z79.84 Long term (current) use of oral hypoglycemic drugs; Z79.899 Other long term (current) drug therapy; Z88.5 Allergy status to narcotic agent; Z95.5 Presence of coronary angioplasty implant and graft
CPT/HCPCS: 24105; 64718; 64721; 71046; 80048; 80202; 81001; 82962 ×2; 85025; 88304; 96365; 96366 ×2; 96375 ×2; 96376 ×2; G0378; 36415; 36416; 96374; J0131; J0702; J1885; J2001; J2405; J2704; J3010; J3370; J7050; S0020

== ENCOUNTER 2018-08-05 10:24 | Day surgery (SDC) | payer MEDICARE ==
[2018-08-04 08:52] VITALS: BMI 42.5
[2018-08-05] MEDS ORDERED: Morphine 2 MG/ML SYRINGE ONE (14:50)
--- NOTE | 2018-08-05 15:50 | OP ---
DATE OF PROCEDURE: 08/05/2018 TITLE OF PROCEDURE: Esophagogastroduodenoscopy with biopsy. PREPROCEDURE DIAGNOSES: 1. Cirrhosis, evaluate for varices. 2. Nonalcoholic fatty liver disease. POSTPROCEDURE DIAGNOSES: 1. Exam to second portion of duodenum. 2. Small 1-cm sliding hiatal hernia. 3. Mild portal gastropathy involving the gastric body. 4. Antral gastritis with a small shallow ulcer, biopsied. 5. Mild duodenitis of the bulb. 6. Normal postbulbar duodenum. 7. No evidence of esophageal or gastric varices. PROCEDURE IN DETAIL: Written informed consent was obtained. The patient was brought to the endoscopy suite. Total intravenous anesthesia was provided by present Anesthesia. The patient was placed in the left lateral decubitus position. A bite block was inserted into the mouth. When adequate sedation was achieved, a Pentax video diagnostic gastroscope was introduced into the oral cavity and the esophagus was carefully intubated. The gastroscope was advanced under direct visualization to the second portion of the duodenum. Endoscopic findings revealed a grossly normal appearing esophagus with a small sliding hiatal hernia estimated at 1-cm in length. There was no evidence of esophageal ulcer or erosive esophagitis. There were no varices. The stomach was entered and carefully examined. This included a retroflex view of the cardia and fundus. No gastric varices were identified. The mucosa of the gastric body demonstrated mild diffuse erythema, congestion, and a mild reticular pattern consistent with a mild portal gastropathy. In the gastric antrum, the mucosa appeared more congested and a small 2 to 3 mm shallow ulcer was noted with moderate amount of surrounding edema. The ulcer was biopsied for histology. There was no evidence of visible vessel or ulcer hemorrhage. The duodenum from the bulb to the second portion was then inspected. Shallow erosions were noted in the bulb, but there was no ulcer or active bleeding. The postbulbar duodenum appeared normal. The stomach was decompressed as the endoscope was removed from the patient. He was repositioned for the colonoscopy. RECOMMENDATIONS: 1. Await pathology results. 2. Ask the patient to call me in 1 week for pathology results. 3. Follow up in GI clinic in 5 to 6 weeks. 4. Initiate lactulose 2 tablespoons daily. 5. Initiate Aldactone 50 mg daily. 6. We will obtain a metabolic panel and CBC when the patient follows up in clinic. 7. Continue beta claudio therapy. 8. Continue low-sodium diet. 9. Initiate Nexium 40 mg daily for 6 weeks. Job ID: [id number]
[2018-08-05] MEDS ORDERED: PROPOFOL 200 MG/20 ML VIAL ONE (16:26)
--- NOTE | 2018-08-05 18:10 | OP ---
DATE OF PROCEDURE: 08/05/2018 TITLE OF PROCEDURE: Colonoscopy with biopsy. PREPROCEDURE DIAGNOSES: 1. Hematochezia. 2. Colon screening. POSTPROCEDURE DIAGNOSES: 1. Exam to cecum; good bowel preparation. 2. Mild sigmoid diverticulosis. 3. Small internal hemorrhoids. 4. Ascending colon submucosal mass (2.5 cm), biopsied. 5. No evidence of polyp. 6. No evidence of colonic bleeding. PROCEDURE IN DETAIL: Written informed consent was obtained. Upon completion of the EGD, the patient was repositioned for the colonoscopy. Total intravenous anesthesia was provided by [place] [facility]. A digital rectal exam was performed, which showed very small external hemorrhoids. A Pentax video colonoscope was inserted through the anal canal and advanced under direct visualization to the cecum. Position in the cecum was verified by clear identification of the appendiceal orifice and the ileocecal valve. The quality of the bowel preparation was good. Each colon segment was examined carefully as the colonoscope was slowly withdrawn from the cecum. Vascular pattern and haustral folds appeared normal. Occasional diverticular small orifices were noted in the sigmoid colon consistent with a mild diverticulosis. In the mid ascending colon, a 2.5 cm submucosal mass was identified, and the appearance was consistent with a benign lipoma. The mass was very soft and pliable when probed with the biopsy forceps. Tissue samples were obtained for histology. No polyps were seen. There was no evidence of colonic bleeding or ulcer. In the rectum, retroflexed view demonstrated small internal hemorrhoids that were not bleeding. The colon was decompressed as the colonoscope was removed from the patient. He was transferred to the Day Stay surgery area for postprocedure monitoring. There were no immediate complications. RECOMMENDATIONS: 1. High-fiber, low-fat diet. 2. Initiate lactulose 30 mL p.o. daily. 3. Sitz baths t.i.d. p.r.n. hemorrhoid bleeding. 4. Anusol HC suppositories or Analpram HC cream daily to b.i.d. p.r.n. hemorrhoids. 5. For colon cancer screening purposes, repeat colonoscopy in 10 years. 6. Follow up in GI clinic in 6 weeks. Job ID: [id number]
== END 2018-08-05 15:05 | disposition home or self-care (01) ==
LOC: SDC 10:24
PROVIDERS: ATTEND Internal Medicine Gastroenterology
PROC: 0DBK8ZX Excision of Ascending Colon, Via Natural or Artificial Opening Endoscopic, Diagnostic (ICD-10-PCS; principal; 2018-08-05)
PROC: 0DB78ZX Excision of Stomach, Pylorus, Via Natural or Artificial Opening Endoscopic, Diagnostic (ICD-10-PCS; 2018-08-05)
DX: K57.31 Diverticulosis of large intestine without perforation or abscess with bleeding (principal); K64.8 Other hemorrhoids; K64.4 Residual hemorrhoidal skin tags; K63.89 Other specified diseases of intestine; K25.9 Gastric ulcer, unspecified as acute or chronic, without hemorrhage or perforation; K31.89 Other diseases of stomach and duodenum; K44.9 Diaphragmatic hernia without obstruction or gangrene; K29.80 Duodenitis without bleeding; K26.9 Duodenal ulcer, unspecified as acute or chronic, without hemorrhage or perforation; K74.69 Other cirrhosis of liver; K76.0 Fatty (change of) liver, not elsewhere classified; E78.5 Hyperlipidemia, unspecified; I10 Essential (primary) hypertension; E11.9 Type 2 diabetes mellitus without complications; E66.9 Obesity, unspecified; Z68.41 Body mass index [BMI] 40.0-44.9, adult; Z79.82 Long term (current) use of aspirin; Z79.84 Long term (current) use of oral hypoglycemic drugs; Z79.899 Other long term (current) drug therapy; Z88.5 Allergy status to narcotic agent
CPT/HCPCS: 88305; 88312; J2270; J2704

== ENCOUNTER 2018-12-10 23:36 | Emergency (ER) | payer MEDICARE ==
[2018-12-11 00:25] LABS: ALT (SGPT) 24 U/L (8-55); AST (SGOT) 36 U/L (5-34); Albumin 4.2 g/dL (3.4-4.8); Alkaline Phosphatase 34 U/L (40-150); Anion Gap 14 mmol/L (10-20); BUN (Urea Nitrogen) 25 mg/dL (8.4-25.7); Bilirubin, Total 1.2 mg/dL (0.2-1.2); Calc. Creatinine Clearance 0 mL/min (70-130); Calcium 9.4 mg/dL (7.8-10.44); Carbon Dioxide 23 mmol/L (23-31); Chloride 104 mmol/L (98-107); Estimated GFR-MDRD 47; Globulin 3.2 g/dL (2.4-3.5); Glucose 96 mg/dL (80-115); Potassium 4.1 mmol/L (3.5-5.1); Protein, Total 7.4 g/dL (5.8-8.1); Sodium 137 mmol/L (136-145)
[2018-12-11 00:36] LABS: Band 8 % (5-11); Hemoglobin 11.5 g/dL (14.0-18.0); Lymphocytes 20 % (21-51); MDiff Complete? YES; Mean Corpuscular HGB CONC 34.3 g/dL (32.0-36.0); Mean Corpuscular Hemoglobin 33.4 pg (27.0-31.0); Mean Corpuscular Volume 97.6 fL (78.0-98.0); Mean Platelet Volume 8.2 fL (7.4-10.4); Monocytes 17 % (0-10); Neutrophil 53 % (42-75); Platelet Count 112 thou/uL (130-400); Platelet Morphology Comment Appears Decreased; RBC Distribution Width 12.7 % (11.5-14.5); Red Blood Cell (RBC) Count 3.44 mill/uL (4.70-6.10); White Blood Cell (WBC) Count 3.6 thou/uL (4.8-10.8)
--- NOTE | 2018-12-11 07:15 | ULT ---
ULTRASOUND WITH DOPPLER DUPLEX VENOUS LOWER EXTREMITY RIGHT CPT: 21082 ICD-10-PCS: B54D HISTORY: Erythema and edema. TECHNIQUE: Color flow Doppler, spectral waveform analysis of pulsed Doppler, and caro-scale imaging with tamie roxann and augmentation, were used to evaluate the bilateral common femoral, femoral, popliteal, graphite mill operator ior tibial, and superficial femoral, veins; and the proximal portions of the profunda femoral and gre ater saphenous, veins. FINDINGS: There is appropriate compressibility and flow within the imaged deep vein system of the right lower e xtremity. IMPRESSION: No deep vein thrombosis. POS: MADELYN
--- NOTE | 2018-12-11 08:51 | RAD ---
CHEST 1 VIEW: HISTORY: Pain. COMPARISON: 02/26/2018, 06/15/2018.. FINDINGS: Redemonstration of right humeral prosthesis. Slight elongation of the aorta. Normal cardiac silhoue tte. Pulmonary vessels are normal. Costophrenic angles are clear. Persistent patchy opacities thro ughout the lung parenchyma, likely representing a chronic process. No consolidation or masses. No pneumothorax or osseous abnormalities. IMPRESSION: No acute cardiopulmonary process. POS: OFF
== END 2018-12-11 00:57 | disposition home or self-care (01) ==
LOC: ERS 23:36
DX: L03.115 Cellulitis of right lower limb (principal); I10 Essential (primary) hypertension; E11.9 Type 2 diabetes mellitus without complications; E78.5 Hyperlipidemia, unspecified; K74.60 Unspecified cirrhosis of liver; Z79.899 Other long term (current) drug therapy; Z79.82 Long term (current) use of aspirin
CPT/HCPCS: 71045; 80053; 84484; 85025; 85379; 93005

== ENCOUNTER 2019-05-04 13:35 | Outpatient (CLI) | payer MEDICARE ==
--- NOTE | 2019-05-04 15:58 | HP ---
HISTORY OF PRESENT ILLNESS: Mr. Chinedu Quiros is a very pleasant 64-year-old gentleman, who presents to the [facility] for evaluation of 2 venous ulcerations of the left anterior lower leg. The patient states that he has had venous ulcerations present on an intermittent basis for the past 10 years. He states that the ulcerations now present began after he ran into a middle buster, a type of plow, on 04/23/2019. The patient states that he was being seen by Dr. Grace Eckert, and at this time, the patient was referred to the Wound Center for further evaluation and treatment of the ulcerations of the left anterior lower leg. The patient states that he is on a transplant list for stage IV cirrhosis. He states that he may be receiving a kidney as well as a liver at the time of transplantation. PAST MEDICAL HISTORY: 1. Diabetes mellitus. 2. Coronary artery disease. 3. Hypertension. 4. Chronic kidney disease stage 2. 5. Splenomegaly. PAST SURGICAL HISTORY: 1. Appendectomy and resection of a portion of the small intestine. 2. Left shoulder arthroplasty. 3. Right upper extremity surgery x2. 4. Left upper extremity surgery x1. 5. Resection of right third through fifth toes and metatarsals at age 10. MEDICATIONS: 1. Aspirin. 2. Atorvastatin. 3. Centrum Silver. 4. Esomeprazole. 5. Fenofibrate. 6. Fish oil. 7. Lasix. 8. Glipizide. 9. Isosorbide. 10. Janumet. 11. Lactulose. 12. Metoprolol. 13. Pioglitazone. 14. Spironolactone. ALLERGIES: CODEINE. SOCIAL HISTORY: Negative for tobacco use. The patient admits to the moderate consumption of alcohol in the past. FAMILY HISTORY: Family history is significant for coronary artery disease. The patient's father was diagnosed with coronary artery disease. Family history is also significant for diabetes mellitus. The patient states that his brother was diagnosed with diabetes mellitus. REVIEW OF SYSTEMS: The patient states he has been told that he has a condition of his gallbladder, but cholecystectomy is contraindicated in view of his liver disease. PHYSICAL EXAMINATION: VITAL SIGNS: Temperature 98.2, pulse 94, respirations 16, and blood pressure 130/77. GENERAL: A 64-year-old gentleman, lying on table in examination room, in no acute distress. HEENT: Normocephalic, atraumatic. NECK: No nuchal rigidity. CHEST: Clear to auscultation. CV: Regular rate and rhythm. ABDOMEN: Soft. EXTREMITIES: Two ulcerations of the left anterior lower leg are present, which measure approximately 1.0 x 0.3 cm and 3.8 x 1.2 cm. Granulation tissue is present within the margins of each wound. No purulent drainage is associated with either wound. No erythema of the skin surrounding either wound is present. No maceration of the skin of the periwound of either wound is noted. A dorsalis pedis pulse is palpable on the left. A dorsalis pedis pulse is also palpable on the right. Tebc-[id number] edema of the left foot and lower leg is present on exam today. Numerous varicosities are visible over the left lower leg. Discoloration of the skin of the left lower leg is also noted secondary to hemosiderin deposition. NEUROLOGIC: Grossly nonfocal. ASSESSMENT AND PLAN: 1. 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 No antibiotics will be prescribed based upon the appearance of the wounds. I will see Mr. Quiros again in 1 week. The patient has been instructed to keep the wrap applied in clinic today clean and dry until his followup visit in 1 week. The patient understands and is in agreement with the preceding treatment plan. 2. Diabetes mellitus. Accu-Cheks will be obtained at the time of the patient's clinic visits. The patient has been told that for optimal wound healing, his blood glucoses should remain below 150. 3. Coronary artery disease. 4. Hypertension. 5. Chronic kidney disease stage 2. 6. Splenomegaly. Job ID: [id number]
[2019-05-04] MEDS ORDERED: Sodium Chloride 0.9% 15 ML NEB ONE (23:21)
== END 2019-05-04 13:36 | disposition home or self-care (01) ==
LOC: WCC 13:35
PROVIDERS: ATTEND Family Medicine
DX: I83.028 Varicose veins of left lower extremity with ulcer other part of lower leg (principal); L97.829 Non-pressure chronic ulcer of other part of left lower leg with unspecified severity; E11.9 Type 2 diabetes mellitus without complications; I25.10 Atherosclerotic heart disease of native coronary artery without angina pectoris; R16.1 Splenomegaly, not elsewhere classified; I12.9 Hypertensive chronic kidney disease with stage 1 through stage 4 chronic kidney disease, or unspecified chronic kidney disease; N18.2 Chronic kidney disease, stage 2 (mild)
CPT/HCPCS: A4218

== ENCOUNTER 2019-05-11 13:30 | Outpatient (CLI) | payer MEDICARE ==
--- NOTE | 2019-05-11 15:00 | PRG ---
DATE OF SERVICE: 05/11/2019 HISTORY: Mr. Chinedu Quiros is a very pleasant 64-year-old gentleman, who presents to the [facility]ound Center for evaluation of 2 venous ulcerations of the left anterior lower leg. The patient previously stated that he had venous ulcerations present on an intermittent basis for the past 10 years. He stated that the ulcerations now present began after he ran into a type of plow on 04/23/2019. The patient stated that he was being seen by Dr. Grace Eckert, and at this time, referred to the Wound Center for further evaluation and treatment of the ulcerations of the left anterior lower leg. The patient stated that he is on a transplant list for stage IV cirrhosis. He stated that he may be receiving a kidney as well as a liver at the time of transplantation. PHYSICAL EXAMINATION: VITAL SIGNS: Temperature 97.9, pulse 104, respirations 19, blood pressure 167/92. EXTREMITIES: Two ulcerations of the left anterior lower leg are present, which measure approximately 1.1 x 0.9 cm and 2.0 x 0.7 cm. Granulation tissue is present within the margins of each wound. No purulent drainage is associated with either wound. No erythema of the skin surrounding either wound is present. No maceration of the skin of the periwound of either wound is noted. A dorsalis pedis pulse is palpable on the left. No significant edema of the left lower leg is present on exam today. Numerous varicosities are present over the left lower leg. Discoloration of the skin of the left lower leg is also noted secondary to hemosiderin deposition. ASSESSMENT AND PLAN: 1. 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 Xeroform followed by Webril and the 3M Coban 2 Layer Compression System will be applied to the ulcerations today. I will see Mr. Quiros again in 1 week. 2. Diabetes mellitus. Accu-Cheks will be obtained at the time of the patient's clinic visit. The patient has been reminded that for optimal wound healing, his blood glucoses should remain below 150. 3. Coronary artery disease. 4. Hypertension. 5. Chronic kidney disease, stage 2. 6. Splenomegaly. Job ID: [id number]
[2019-05-11] MEDS ORDERED: Sodium Chloride 0.9% 15 ML NEB ONE (18:00)
== END 2019-05-11 13:31 | disposition home or self-care (01) ==
LOC: WCC 13:30
PROVIDERS: ATTEND Family Medicine
DX: I83.028 Varicose veins of left lower extremity with ulcer other part of lower leg (principal); E11.622 Type 2 diabetes mellitus with other skin ulcer; L97.929 Non-pressure chronic ulcer of unspecified part of left lower leg with unspecified severity; I12.9 Hypertensive chronic kidney disease with stage 1 through stage 4 chronic kidney disease, or unspecified chronic kidney disease; E11.22 Type 2 diabetes mellitus with diabetic chronic kidney disease; N18.2 Chronic kidney disease, stage 2 (mild); R16.1 Splenomegaly, not elsewhere classified; I25.10 Atherosclerotic heart disease of native coronary artery without angina pectoris
CPT/HCPCS: 29581; A4218

== ENCOUNTER 2019-05-18 08:56 | Outpatient (CLI) | payer MEDICARE ==
[2019-05-18] MEDS ORDERED: Sodium Chloride 0.9% 15 ML NEB ONE (09:00)
--- NOTE | 2019-05-18 10:49 | PRG ---
DATE OF SERVICE: 05/18/2019 HISTORY: Mr. Chinedu Quiros is a very pleasant 64-year-old gentleman, who presents to the wound center for evaluation of 2 venous ulcerations of the left anterior lower leg. The patient previously stated that he had venous ulcerations present on an intermittent basis for the past 10 years. He stated that the ulcerations now present, began after he ran into a type of plow on 04/23/2019. The patient stated that he was being seen by Dr. Grace Eckert, and at this time referred to the wound center for further evaluation and treatment of the ulcerations of the left anterior lower leg. The patient stated that he is on a transplant list for stage IV cirrhosis. He stated that he may be receiving a kidney as well as a liver at the time of transplantation. PHYSICAL EXAMINATION: VITAL SIGNS: Temperature 98.2, pulse 56, respirations 20, blood pressure 127/65. Accu-Chek 238. EXTREMITIES: Two ulcerations of the left anterior lower leg are present, which measure approximately 1.1 x 0.6 cm and 0.7 x 0.4 cm. The dimensions of these wounds at the time of the patient's last visit were approximately 1.1 x 0.9 cm and 2.0 x 0.7 cm respectively. No purulent drainage is associated with either wound. No erythema of the skin surrounding either wound is present. No maceration of the skin of the periwound of either wound is noted. No significant edema of the left lower leg is present on exam today. Numerous varicosities are present over the left lower leg. Discoloration of the skin of the left lower leg is also noted secondary to hemosiderin deposition. ASSESSMENT AND PLAN: 1. 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 The patient reports slippage of the 3M Coban 2 Layer Compression System soon after its application. Therefore, dressing changes of Xeroform gauze followed by Mima will be initiated today. These dressing changes are to be performed on a weekly basis after cleansing and irrigation. The patient has been reassured that the wounds have almost healed completely. The patient will be discharged from clinic today with followup on a p.r.n. basis. The patient understands and is in agreement with the preceding treatment plan. 2. Diabetes mellitus. The patient's Accu-Chek in clinic today is 238. The patient has been reminded that for optimal wound healing his blood glucoses should remain below 150. 3. Coronary artery disease. 4. Hypertension. 5. Chronic kidney disease, stage 2. 6. Splenomegaly. Job ID: [id number]
== END 2019-05-18 08:57 | disposition home or self-care (01) ==
LOC: WCC 08:56
PROVIDERS: ATTEND Family Medicine
DX: I83.028 Varicose veins of left lower extremity with ulcer other part of lower leg (principal); L97.829 Non-pressure chronic ulcer of other part of left lower leg with unspecified severity; I12.9 Hypertensive chronic kidney disease with stage 1 through stage 4 chronic kidney disease, or unspecified chronic kidney disease; E11.22 Type 2 diabetes mellitus with diabetic chronic kidney disease; N18.2 Chronic kidney disease, stage 2 (mild); R16.1 Splenomegaly, not elsewhere classified; I25.10 Atherosclerotic heart disease of native coronary artery without angina pectoris
CPT/HCPCS: 36416; A4218

== ENCOUNTER 2019-11-18 09:59 | Outpatient (CLI) | payer MEDICARE ==
--- NOTE | 2019-11-18 14:19 | ULT ---
ULTRASOUND ABDOMEN: 11/18/19 HISTORY: Cirrhosis of the liver. FINDINGS: The liver demonstrates increased echogenicity without focal mass or intrahepatic ductal dilatation. T he spleen is enlarged measuring 23.2 cm in length. There is shadowing gallstones and sludge in the ga llbladder without gallbladder wall thickening or pericholecystic fluid. The common duct measures 4 mm in diameter. The tail of the pancreas is not visualized. The kidneys and visualized portions of the pancreas, aorta and IVC are unremarkable. No ascites is seen. IMPRESSION: 1. Findings of hepatocellular disease such as fatty infiltration. 2. Cholelithiasis. 3. Splenomegaly. POS: [facility]
== END 2019-11-18 10:00 | disposition home or self-care (01) ==
LOC: BICULT 09:59
PROVIDERS: ATTEND Internal Medicine
DX: K74.60 Unspecified cirrhosis of liver (principal); R18.8 Other ascites; R94.5 Abnormal results of liver function studies; E16.2 Hypoglycemia, unspecified; K80.20 Calculus of gallbladder without cholecystitis without obstruction; R16.1 Splenomegaly, not elsewhere classified; K76.0 Fatty (change of) liver, not elsewhere classified
CPT/HCPCS: 93975

== ENCOUNTER 2019-11-24 13:33 | Inpatient (IN) | payer MEDICARE ==
[2019-11-24 15:03] LABS: #Eosinphils 0.1 thou/uL (0.0-0.7); #Lymphocytes 0.6 thou/uL (1.20-3.40); #Monocytes 0.3 thou/uL (0.11-0.59); #Neutrophils 2.1 thou/uL (1.40-6.50); %Basophils 0.6 % (0.0-1.0); %Eosinophils 2.6 % (0.0-10.0); %Lymphocytes 19.8 % (21.0-51.0); %Monocytes 10.6 % (0.0-10.0); %Neutrophils 66.5 % (42.0-75.0); Hemoglobin 11.3 g/dL (14.0-18.0); INR-International Normal Ratio 1.1; Mean Corpuscular HGB CONC 33.7 g/dL (32.0-36.0); Mean Corpuscular Hemoglobin 33.7 pg (27.0-31.0); Mean Platelet Volume 9.3 fL (7.4-10.4); PTT 31.7 SEC (22.9-36.1); Platelet Count 115 thou/uL (130-400); Prothrombin Time 14.2 sec (12.0-14.7); RBC Distribution Width 12.8 % (11.5-14.5); Red Blood Cell (RBC) Count 3.35 mill/uL (4.70-6.10); White Blood Cell (WBC) Count 3.1 thou/uL (4.8-10.8)
[2019-11-24 15:04] LABS: Bilirubin Negative (Negative); Blood, Urine Negative (Negative); Clarity Clear (Clear); Glucose, Urine (Dipstick) Negative (Negative); Leukocyte Negative (Negative); Nitrite Negative (Negative); Protein, Urine (Dipstick) Negative (Neg-Trace); Urobilinogen 0.2 mg/dL (Less than 2)
[2019-11-24 15:05] LABS: D-Dimer Test 0.36 *mcg/mL (0.27-0.43)
[2019-11-24] MEDS ORDERED: Furosemide 40 MG/4 ML VIAL ONE (15:18)
--- NOTE | 2019-11-24 15:20 | RAD ---
Chest one view HISTORY: Dyspnea. Wheezing. COMPARISON: 12/11/2018. FINDINGS: Cardiac silhouette is magnified and enlarged. Pulmonary vasculature remains upper limits of normal. Mediastinum is midline with aortic calcification. No lobar consolidation or evidence of pneumothorax. Left shoulder prosthesis partially visualized. IMPRESSION : Cardiomegaly and chronic borderline pulmonary vascular prominence are stable.
[2019-11-24 15:21] LABS: ALT (SGPT) 36 U/L (8-55); AST (SGOT) 45 U/L (5-34); Albumin 3.9 g/dL (3.4-4.8); Alkaline Phosphatase 51 U/L (40-110); Anion Gap 13 mmol/L (10-20); BUN (Urea Nitrogen) 27 mg/dL (8.4-25.7); Bilirubin, Total 0.8 mg/dL (0.2-1.2); Calc. Creatinine Clearance 0 mL/min (70-130); Calcium 8.7 mg/dL (7.8-10.44); Carbon Dioxide 24 mmol/L (23-31); Chloride 106 mmol/L (98-107); Estimated GFR-MDRD 43; Glucose 180 mg/dL (80-115); Lipase 67 U/L (8-78); Protein, Total 6.9 g/dL (5.8-8.1); Sodium 139 mmol/L (136-145)
--- NOTE | 2019-11-24 17:58 | PDOC.FPRHP ---
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 Pt states he has felt fatigued, gaining 30 lbs and having LE edema gradually worsening over the last 2 weeks. c/o dizziness when bending over , cough, PND, and ORTIZ. Denies CP or palpitations currently. However over the last 3 months the pt reports feeling his heart racing for short periods of time in the evenings off and on. He has no known hx of CHF or A fib. Pt had a stress test last year with Dr. Rodriguez which he reports as normal. Echo in 02/2018 EF 50-55%, with diastolic dysfunction and hypokinetic inferior LV. Pt see's Dr. Skip Crook for his liver. Had an abd sono on 11/17 showing fatty infiltrates and splenomegaly. ED course: EKG: A fib h/h 11.3/33.5. wbc 3.1, plt 115. MCV 100 cxr: cardiomegaly, chronic borderline pulmonary vascular prominence, stable. BNP 164 d-dimer 0.36 Cr 1.64 given 40 mg IV lasix - Allergies/Adverse Reactions Allergies Allergy/AdvReac Type Severity Reaction Status Date / Time codeine Allergy Intermediate Hives Verified 11/24/19 23:02 - Home Medications Medication Instructions Recorded Confirmed Type Multivit-Min/FA/Lycopene/Lut 1 tab PO DAILY 11/09/13 11/24/19 History [Centrum Silver] Aspirin [Aspir-Low] 81 mg PO HS 10/06/16 11/24/19 History Atorvastatin Calcium 40 mg PO HS 10/06/16 11/24/19 History Fenofibrate [Tricor] 160 mg PO HS 10/06/16 11/24/19 History Metoprolol Tartrate 25 mg PO BID 10/06/16 11/24/19 History Isosorbide Mononitrate [Imdur] 1 tab PO DAILY 02/28/18 11/24/19 History Furosemide [Lasix] 20 mg PO ASDIR 11/24/19 11/25/19 History Lactulose 10 GM/15ML Oral Zabrina 15 - 30 ml PO DAILY 11/24/19 11/24/19 History [Lactulose] Pioglitazone HCl [Actos] 45 mg PO DAILY 11/24/19 11/24/19 History glipiZIDE [Glipizide] 5 mg PO HS 11/24/19 11/24/19 History Spironolactone 50 mg PO DAILY 11/25/19 11/25/19 History - History PMHx: non-alcoholic Cirrhosis from fatty liver disease, CAD S/P X3 stents, X5 IN , DM II, HTN PSHx: B arm surgery for carpal tunnel release and cubital tunnel release, appendectomy as child, small intestine resection as child for unknown reasons, X3 stents. FHx: father: passed at age 48 of IN Mother: livign at age 87 healthy. Social: denies use of etoh, drugs or tobacco. Worked in [employer] in [facility] and states he had environmental exposure to benzene - Review of Systems General: reports: fatigue. denies: fever/chills Eyes: denies: eye pain, vision changes ENT: denies: nasal congestion Respiratory: reports: cough, shortness of breath, exercise intolerance. denies : congestion Cardiovascular: reports: palpitation, edema, paroxysmal nocturnal dyspnea. denies: chest pain, orthopnea Gastrointestinal: denies: nausea, vomiting, diarrhea, abdominal pain Skin: denies: rashes Musculoskeletal: reports: arthritis/arthralgias Neurological: denies: numbness, seizure Psychological: denies: anxiety, depression - Vital signs BP: 132/61 HR: 80 RR: 20 Tmax: 97.9 F Pox: 99% on ra Wt: 155.99 kg - Physical Exam Constitutional: NAD, awake, alert and oriented HEENT: normocephalic and atraumatic, PERRLA, EOMI, grossly normal vision, grossly normal hearing, MMM Neck: supple, trachea midline Heart: no murmurs/rubs/gallops, other (irregularlly irregular normal rate.) Lungs: CTAB, no respiratory distress, good air movement, no rales/rhonchi, no wheezing, no retractions Abdomen: soft, bowel sounds present, other (obese abdomen with fluid wave.) Musculoskeletal: normal structure, ROM grossly normal Neurological: no focal deficit, normal sensation Skin: good turgor, capillary refill <2 seconds Heme/Lymphatic: no unusual bruising or bleeding Psychiatric: normal mood and affect, good judgment and insight, intact recent and remote memory FMR H&P: Results - Labs Result Diagrams: 11/25/19 03:35 11/25/19 03:35 Lab results: WBC 3.1 thou/uL (4.8-10.8) L 11/24/19 14:48 Hgb 11.3 g/dL (14.0-18.0) L 11/24/19 14:48 Hct 33.5 % (42.0-52.0) L 11/24/19 14:48 MCV 100.0 fL (78.0-98.0) H 11/24/19 14:48 Plt Count 115 thou/uL (130-400) L 11/24/19 14:48 Neutrophils % 66.5 % (42.0-75.0) 11/24/19 14:48 Sodium 139 mmol/L (136-145) 11/24/19 14:48 Potassium 4.0 mmol/L (3.5-5.1) 11/24/19 14:48 Chloride 106 mmol/L (98-107) 11/24/19 14:48 Carbon Dioxide 24 mmol/L (23-31) 11/24/19 14:48 BUN 27 mg/dL (8.4-25.7) H 11/24/19 14:48 Creatinine 1.64 mg/dL (0.7-1.3) H 11/24/19 14:48 Glucose 180 mg/dL (80-115) H 11/24/19 14:48 Calcium 8.7 mg/dL (7.8-10.44) 11/24/19 14:48 Total Bilirubin 0.8 mg/dL (0.2-1.2) 11/24/19 14:48 AST 45 U/L (5-34) H 11/24/19 14:48 ALT 36 U/L (8-55) 11/24/19 14:48 Alkaline Phosphatase 51 U/L (40-110) 11/24/19 14:48 B-Natriuretic Peptide 164.8 pg/mL (0-100) H 11/24/19 14:48 Serum Total Protein 6.9 g/dL (5.8-8.1) 11/24/19 14:48 Albumin 3.9 g/dL (3.4-4.8) 11/24/19 14:48 Lipase 67 U/L (8-78) 11/24/19 14:48 Urine Ketones Negative mg/dL (Negative) 11/24/19 13:40 Urine Blood Negative (Negative) 11/24/19 13:40 Urine Nitrite Negative (Negative) 11/24/19 13:40 Ur Leukocyte Esterase Negative (Negative) 11/24/19 13:40 FMR H&P: A/P - Problem List (1) New onset a-fib Current Visit: Yes Status: Acute Code(s): I48.91 - UNSPECIFIED ATRIAL FIBRILLATION (2) Volume overload Current Visit: Yes Status: Acute Code(s): E87.70 - FLUID OVERLOAD, UNSPECIFIED (3) Cirrhosis of liver not due to alcohol Current Visit: Yes Status: Acute (4) CAD (coronary artery disease) Current Visit: Yes Status: Chronic Code(s): I25.10 - ATHSCL HEART DISEASE OF [place] CORONARY ARTERY W/O ANG PCTRS (5) S/P coronary artery stent placement Current Visit: Yes Status: Chronic (6) Splenomegaly Current Visit: Yes Status: Chronic Code(s): R16.1 - SPLENOMEGALY, NOT ELSEWHERE CLASSIFIED (7) Pancytopenia Current Visit: Yes Status: Chronic Code(s): D61.818 - OTHER PANCYTOPENIA (8) Macrocytic anemia Current Visit: Yes Status: Chronic Code(s): D53.9 - NUTRITIONAL ANEMIA, UNSPECIFIED (9) Diabetes mellitus type 2 in obese Current Visit: Yes Status: Chronic Code(s): E11.9 - TYPE 2 DIABETES MELLITUS WITHOUT COMPLICATIONS; E66.9 - OBESITY, UNSPECIFIED (10) Hypertension Current Visit: Yes Status: Chronic Code(s): I10 - ESSENTIAL (PRIMARY) HYPERTENSION - Plan 64 y/o M admitted to tele inpt due to new onset A fib and possible new onset CHF with volume overload. 1. New onset A fib, without RVR - EKG: a fib - Ordered: TTE, mag, Phos, TSH - Consult Cardiology, appreciate recommendations. 2. Volume overload, suspect new onset CHF - was given 40 mg IV lasix in ED - Strict I/O, fluid restrict <1800 mL daily, weight daily. - Echo in 02/27: EF 50-55%, with suggested diastolic dysfunction. Hypokinetic inferior wall of LV. 3. Cirrhosis - had recent sonogram of abdomen 11/17: findings of hepatocellular disease c/w fatty infiltration. Cholelithiasis, splenomegaly. - continue furosemide and spironolactone 4. NORTH, likely 2/2 volume overload - will trend daily with diuresis. 5. Hx of CAD s/p X3 stent placement - continue home meds - stable, no CP 6. Hx of X5 IN's - Trop 0.011, 0.012 - no CP 7. Fatty liver disease - continue home meds - AST 45, ALT 36 8. Splenomegaly 9. Pancytopenia - 2/2 liver disease most likely 10. Macrocytic anemia - ordered iron, TIBC, ferritin, B12 and folate Code status: full code VTE ppx : SCD's Diet: HH Dispo: stable, admit to tele inpt for new onset A fib evaluation and treatment. FMR H&P: Upper Level - Plan Date/Time: 11/24/19 [id number] IKelton DO, have evaluated this patient and agree with findings/plan as outlined by international marketing manager resident. Pertinent changes/additions are listed here. This is a 64 yo male with a pmh of DM2, HTN, HLD, cirrhosis who presents to the ER with a cc of SOB, weight gain, lower extremity swelling. He states that this has been on going for the last 3 weeks. He denies palpitations, although he has had them in the past. He states his SOB has bee progressive along with his other symptoms and is worse with exertion. He denies cough, fever, or chills. He saw his pcp who sent him for evaluation. He reports a history of swelling bilaterally in the past. The patient also reports he has been diagnosis of fatty liver disease. Objective: Vitals: BP 110/77, HR 82, RR 20, Temp 98.4, SpO2 99 on RA, Wt 160 kg General: NAD HEENT: AT/NC, mmm Cardio: Irregularly irregular rhythm, no murmurs Lungs: Crackles in bases, clear upper lobes Extremities: Cap refill <2, bilateral lower extremity swelling 2+ to the mid thigh, chronic skin changes consistent with venous stasis Please see international marketing manager note for further historical details and chronic condition management A/P New onset atrial fibrillation likely 2/2 fluid overload -Admit to tele obs -Trop 0.011, will trend x3 -BNP of 164.8 -CXR: Cardiomegaly and chronic borderline pulmonary vascular prominence are stable -Will consult cardiology in the AM -Therapeutic lovenox -D-dimer negative -S/P 40 mg IV lasix in ER, will continue BID lasix Cirrhosis due to fatty liver disease -Bili and albumin are normal -Recent abdominal US shows hepatocellular disease with fatty infiltration, cholelithiasis, and splenomegaly -Outpt work up DM2 -Continue home meds -Diabetic protocols per orders CAD -Continue home imdur, atrovastatin, and aspirin CHF -Continue metoprolol and spironolactone -Will continue lasix and obtain echo cardiogram NORTH on CKD 3, likely related to poor cardiac output -Furosemide to treat, trend with AM BMP Macrocytic anemia -Hgb 11.3, MCV 100.0 -Likely relate to his liver disease Thrombocytopenia -Again, likely realted to liver disease -Plt 115 HTN -Continue home meds HLD -Continue home meds Code: Full Prophylaxis: Lovenox Family: None at bedside Fluids: SL Diet: HH Disopsition: DC in 1-2 days PCP: FRANCES Addendum - Attending - Attending Attestation Date/Time: 11/25/19 2344 I personally evaluated the patient and discussed the management with the team. I agree with the History, Examination, Assessment and Plan documented above with any addition or exceptions noted below. Patient with s/s of new onset CHF and possibly paroxysmal afib with RVR. His exam is consistent. Complete workup for above, likely consult cardiology. 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 He was told he needed a paracentesis, but on exam his abdomen is soft, obese, and I do not detect clinically significant ascites that I would be comfortable draining or that would add significantly to our therapeutic direction.
[2019-11-24 18:30] LABS: Troponin I 0.012 ng/mL (< 0.028)
[2019-11-24] MEDS ORDERED: Acetaminophen 325 MG TAB PO PRN (19:17)
[2019-11-24] MEDS ORDERED: Ondansetron ODT 4 MG TAB PO PRN (19:17)
[2019-11-24] MEDS ORDERED: Furosemide 40 MG/4 ML VIAL SLOW IVP SCH (20:15)
[2019-11-24] MEDS ORDERED: Methyl Salicylate/Menthol 85 GM TUBE TOP PRN (20:58)
[2019-11-24] MEDS ORDERED: Potassium Chloride 20 MEQ TAB PO SCH (21:00)
[2019-11-24] MEDS: Atorvastatin Calcium 40 MG TAB PO SCH (22:26)
[2019-11-24 22:38] VITALS: BMI 41.8
[2019-11-24 23:27] LABS: Hemoglobin A1c 5.9 % (4.0-6.0)
[2019-11-24 23:41] LABS: Iron 78 ug/dL (65-175); Iron Binding Capacity, Total 384 mcg/dL (261-462); Phosphorus 3.4 mg/dL (2.3-4.7)
[2019-11-24 23:46] LABS: Troponin I 0.023 ng/mL (< 0.028)
[2019-11-24 23:59] LABS: Ferritin 144.87 ng/mL (22-322); Thyroid Stimulating Hormone 1.2725 uIU/mL (0.35-4.94)
[2019-11-25 04:24] LABS: #Eosinphils 0.1 thou/uL (0.0-0.7); #Lymphocytes 0.6 thou/uL (1.20-3.40); #Monocytes 0.4 thou/uL (0.11-0.59); #Neutrophils 1.9 thou/uL (1.40-6.50); %Basophils 0.4 % (0.0-1.0); %Eosinophils 3.3 % (0.0-10.0); %Lymphocytes 20.3 % (21.0-51.0); %Monocytes 13.5 % (0.0-10.0); %Neutrophils 62.5 % (42.0-75.0); Hemoglobin 11.4 g/dL (14.0-18.0); Mean Corpuscular HGB CONC 32.5 g/dL (32.0-36.0); Mean Corpuscular Hemoglobin 32.6 pg (27.0-31.0); Mean Platelet Volume 9.1 fL (7.4-10.4); Platelet Count 126 thou/uL (130-400); RBC Distribution Width 12.8 % (11.5-14.5)
[2019-11-25 04:51] LABS: ALT (SGPT) 33 U/L (8-55); AST (SGOT) 41 U/L (5-34); Albumin 3.8 g/dL (3.4-4.8); Alkaline Phosphatase 43 U/L (40-110); Anion Gap 14 mmol/L (10-20); BUN (Urea Nitrogen) 32 mg/dL (8.4-25.7); Bilirubin, Total 0.7 mg/dL (0.2-1.2); Calc. Creatinine Clearance 114 mL/min (70-130); Calcium 8.8 mg/dL (7.8-10.44); Carbon Dioxide 24 mmol/L (23-31); Chloride 106 mmol/L (98-107); Estimated GFR-MDRD 49; Glucose 79 mg/dL (80-115); Potassium 3.9 mmol/L (3.5-5.1); Protein, Total 6.8 g/dL (5.8-8.1); Sodium 140 mmol/L (136-145)
[2019-11-25] MEDS ORDERED: Sodium Chloride 0.9% 10 ML ONE (06:10)
[2019-11-25] MEDS: Furosemide 40 MG/4 ML VIAL SLOW IVP SCH ×2 (06:18→15:07)
--- NOTE | 2019-11-25 06:25 | PDOC.FPRHP ---
- Allergies/Adverse Reactions Allergies Allergy/AdvReac Type Severity Reaction Status Date / Time codeine Allergy Intermediate Hives Verified 11/24/19 23:02 - Home Medications Medication Instructions Recorded Confirmed Type Multivit-Min/FA/Lycopene/Lut 1 tab PO DAILY 11/09/13 11/24/19 History [Centrum Silver] Aspirin [Aspir-Low] 81 mg PO HS 10/06/16 11/24/19 History Atorvastatin Calcium 40 mg PO HS 10/06/16 11/24/19 History Fenofibrate [Tricor] 160 mg PO HS 10/06/16 11/24/19 History Metoprolol Tartrate 25 mg PO BID 10/06/16 11/24/19 History Isosorbide Mononitrate [Imdur] 1 tab PO DAILY 02/28/18 11/24/19 History Furosemide [Lasix] 20 mg PO ASDIR 11/24/19 11/25/19 History Lactulose 10 GM/15ML Oral Zabrina 15 - 30 ml PO DAILY 11/24/19 11/24/19 History [Lactulose] Pioglitazone HCl [Actos] 45 mg PO DAILY 11/24/19 11/24/19 History glipiZIDE [Glipizide] 5 mg PO HS 11/24/19 11/24/19 History Spironolactone 50 mg PO DAILY 11/25/19 11/25/19 History - History PMHx: PSHx: FHx: Social: - Vital signs BP: [] HR: [] RR: [] Tmax: [] Pox: []% on [] Wt: [] FMR H&P: Results - Labs Result Diagrams: 11/25/19 03:35 11/25/19 03:35 Lab results: WBC 3.0 thou/uL (4.8-10.8) L 11/25/19 03:35 Hgb 11.4 g/dL (14.0-18.0) L 11/25/19 03:35 Hct 35.0 % (42.0-52.0) L 11/25/19 03:35 MCV 100.0 fL (78.0-98.0) H 11/25/19 03:35 Plt Count 126 thou/uL (130-400) L 11/25/19 03:35 Neutrophils % 62.5 % (42.0-75.0) 11/25/19 03:35 Sodium 140 mmol/L (136-145) 11/25/19 03:35 Potassium 3.9 mmol/L (3.5-5.1) 11/25/19 03:35 Chloride 106 mmol/L (98-107) 11/25/19 03:35 Carbon Dioxide 24 mmol/L (23-31) 11/25/19 03:35 BUN 32 mg/dL (8.4-25.7) H 11/25/19 03:35 Creatinine 1.45 mg/dL (0.7-1.3) H 11/25/19 03:35 Glucose 79 mg/dL (80-115) L 11/25/19 03:35 Calcium 8.8 mg/dL (7.8-10.44) 11/25/19 03:35 Total Bilirubin 0.7 mg/dL (0.2-1.2) 11/25/19 03:35 AST 41 U/L (5-34) H 11/25/19 03:35 ALT 33 U/L (8-55) 11/25/19 03:35 Alkaline Phosphatase 43 U/L (40-110) 11/25/19 03:35 B-Natriuretic Peptide 164.8 pg/mL (0-100) H 11/24/19 14:48 Serum Total Protein 6.8 g/dL (5.8-8.1) 11/25/19 03:35 Albumin 3.8 g/dL (3.4-4.8) 11/25/19 03:35 Lipase 67 U/L (8-78) 11/24/19 14:48 Urine Ketones Negative mg/dL (Negative) 11/24/19 13:40 Urine Blood Negative (Negative) 11/24/19 13:40 Urine Nitrite Negative (Negative) 11/24/19 13:40 Ur Leukocyte Esterase Negative (Negative) 11/24/19 13:40 FMR H&P: A/P - Problem List (1) New onset a-fib Current Visit: Yes Status: Acute Code(s): I48.91 - UNSPECIFIED ATRIAL FIBRILLATION (2) Volume overload Current Visit: Yes Status: Acute Code(s): E87.70 - FLUID OVERLOAD, UNSPECIFIED (3) CAD (coronary artery disease) Current Visit: Yes Status: Chronic Code(s): I25.10 - ATHSCL HEART DISEASE OF [place] CORONARY ARTERY W/O ANG PCTRS (4) Diabetes mellitus type 2 in obese Current Visit: Yes Status: Chronic Code(s): E11.9 - TYPE 2 DIABETES MELLITUS WITHOUT COMPLICATIONS; E66.9 - OBESITY, UNSPECIFIED (5) Hypertension Current Visit: Yes Status: Chronic Code(s): I10 - ESSENTIAL (PRIMARY) HYPERTENSION (6) Pancytopenia Current Visit: Yes Status: Chronic Code(s): D61.818 - OTHER PANCYTOPENIA (7) S/P coronary artery stent placement Current Visit: Yes Status: Chronic (8) Splenomegaly Current Visit: Yes Status: Chronic Code(s): R16.1 - SPLENOMEGALY, NOT ELSEWHERE CLASSIFIED - Plan New onset A fib - Ordered: TTE - Electrolytes WNL, nml TSH - Consult Cardiology, appreciate recommendations. Volume overload, suspect new onset CHF - was given 40 mg IV lasix in ED - Strict I/O, fluid restrict <1800 mL daily, weight daily. - Echo in 02/27: EF 50-55%, with suggested diastolic dysfunction. Hypokinetic inferior wall of LV. Cirrhosis - had recent sonogram of abdomen 11/17: findings of hepatocellular disease c/w fatty infiltration. Cholelithiasis, splenomegaly. - continue furosemide and spironolactone - AST 45, ALT 36 NORTH, likely 2/2 volume overload - will trend daily with diuresis. Hx of CAD s/p X3 stent placement - continue home meds Hx of X5 WI's - Trop 0.011, 0.012 - no CP Splenomegaly Pancytopenia - 2/2 liver disease most likely Macrocytic anemia - Borderline Folate - Start Vit B/Folic acid complex Code status: full code VTE ppx : SCD's Diet: HH Dispo: stable, admit to tele inpt for new onset A fib evaluation and treatment. FMR H&P: Upper Level - Plan Date/Time: 11/25/19 0623 I, [], have evaluated this patient and agree with findings/plan as outlined by architect internship resident. Pertinent changes/additions are listed here.
--- NOTE | 2019-11-25 06:44 | PDOC.FM ---
Addendum entered and electronically signed by Raji Wong DO 11/25/19 08:38 : correction for Physical Exam: Cardiology: Borderline rapid rate with irregularly irregular rhythm, no significant murmur auscultated Original Note: - Subjective Subjective: No events overnight. Pt continues to deny any chest pain or shortness of breath. Feels his legs are slightly more swollen then usual. States he has been urinating frequently since getting the lasix. - Objective Vital Signs & Weight: Vital Signs (12 hours) Temp Pulse Resp BP Pulse Ox 11/25/19 03:20 97.8 F 91 18 132/72 97 11/24/19 19:25 99 11/24/19 19:20 97.9 F 80 20 132/61 99 Weight Weight 156.126 kg I&O: 11/23/19 11/24/19 11/25/19 06:59 06:59 06:59 Intake Total 700 Output Total 1575 Balance -875 Result Diagrams: 11/25/19 03:35 11/25/19 03:35 Phys Exam - Physical Examination Constitutional: NAD HEENT: sclera anicteric Respiratory: clear to auscultation bilateral Cardiovascular: RRR, no significant murmur Gastrointestinal: soft Musculoskeletal: pulses present, edema present (1+ edema BLE) Neurological: moves all 4 limbs Psychiatric: normal affect, A&O x 3 Skin: cap refill <2 seconds Dx/Plan (1) New onset a-fib Code(s): I48.91 - UNSPECIFIED ATRIAL FIBRILLATION Status: Acute (2) Volume overload Code(s): E87.70 - FLUID OVERLOAD, UNSPECIFIED Status: Acute (3) CAD (coronary artery disease) Code(s): I25.10 - ATHSCL HEART DISEASE OF [place] CORONARY ARTERY W/O ANG PCTRS Status: Chronic (4) Diabetes mellitus type 2 in obese Code(s): E11.9 - TYPE 2 DIABETES MELLITUS WITHOUT COMPLICATIONS; E66.9 - OBESITY , UNSPECIFIED Status: Chronic (5) Hypertension Code(s): I10 - ESSENTIAL (PRIMARY) HYPERTENSION Status: Chronic (6) Pancytopenia Code(s): D61.818 - OTHER PANCYTOPENIA Status: Chronic (7) S/P coronary artery stent placement Status: Chronic (8) Splenomegaly Code(s): R16.1 - SPLENOMEGALY, NOT ELSEWHERE CLASSIFIED Status: Chronic - Plan Plan: New onset atrial fibrillation likely 2/2 fluid overload -Trop stable, negative x3 -BNP of 164.8 -CXR: Cardiomegaly and chronic borderline pulmonary vascular prominence are stable -Consult cards, Dr. Fuller -Eliquis 5mg BID for anticoag -Ordered: TTE -D-dimer negative -S/P 40 mg IV lasix in ER, will continue 40mg BID lasix -Fluid restriction, strict I/O and daily weights Cirrhosis due to fatty liver disease -Bili and albumin are normal -Recent abdominal US shows hepatocellular disease with fatty infiltration, cholelithiasis, and splenomegaly -Outpt work up DM2 -Continue home meds -Diabetic protocols per orders CAD -Continue home imdur, atrovastatin, and aspirin CHF -Continue metoprolol and spironolactone -Will continue lasix and obtain echo cardiogram NORTH on CKD 3, likely related to poor cardiac output -Furosemide to treat, trend with AM BMP Macrocytic anemia -Hgb 11.3, MCV 100.0 -Likely relate to his liver disease -Borderline Folate - add supplement Thrombocytopenia -Again, likely realted to liver disease -Plt 115 HTN -Continue home meds HLD -Continue home meds Code: Full Prophylaxis: Lovenox Family: None at bedside Fluids: SL Diet: HH Disopsition: DC in 1-2 days PCP: FRANCES Addendum - Attending - Attending Attestation Date/Time: 11/25/19 1320 I personally evaluated the patient and discussed the management with Dr. Wong. I agree with the History, Examination, Assessment and Plan documented above with any addition or exceptions noted below. Patient here for new diagnosis of Afib. He has been started on NOAC. Cardiology consult. Echo pending.
[2019-11-25] MEDS: glipiZIDE 5 MG TAB PO SCH (10:33)
[2019-11-25] MEDS: Multivitamin W/ Minerals 1 TAB PO SCH (10:34)
[2019-11-25] MEDS: Folic Acid/Vit B Comp W-C PO SCH (10:34)
[2019-11-25] MEDS: Metoprolol Tartrate 25 MG TAB PO SCH ×2 (10:34→20:24)
[2019-11-25] MEDS: Fenofibrate Nanocrystallized 145 MG TAB PO SCH (10:34)
[2019-11-25] MEDS: Apixaban 5 MG TAB PO SCH ×2 (10:38→20:24)
--- NOTE | 2019-11-25 14:17 | CON ---
DATE OF CONSULTATION: 11/25/2019 REASON FOR CONSULTATION: Atrial fibrillation. HISTORY OF PRESENT ILLNESS: Mr. Quiros is a very pleasant 64-year-old gentleman, whom I have seen in the past. He has a previous history of CAD, status post stent. He was last seen on 07/19/2019. He recently presented with 30-pound weight gain over the last 1 to 2 months. He states he has had irregular heart rhythm. No chest pain or pressure noted. He does complain of increased shortness of breath. He does also have a history of cirrhosis and is currently on a liver transplant list and is being seen and evaluated in [place]. He was diagnosed with AFib with RVR initially. He is now rate controlled on p.o. medications. HOME MEDICATIONS: Include: 1. Fish oil. 2. Atorvastatin. 3. Vitamin C. 4. Centrum Silver. 5. Janumet. 6. Metoprolol. 7. Aspirin. 8. Fenofibrate. 9. Pioglitazone. 10. Glipizide. 11. Lactulose. 12. Lasix. 13. Spironolactone. 14. Isosorbide. PAST MEDICAL HISTORY: CAD, status post stent placement, diabetes mellitus, hypertension, hyperlipidemia, cirrhosis. PAST SURGICAL HISTORY: Shoulder surgery, toe amputations, stent placement. FAMILY HISTORY: Positive for CAD. SOCIAL HISTORY: No current tobacco or alcohol use. ALLERGIES: NONE. REVIEW OF SYSTEMS: A 10-point review of systems is reviewed as above, otherwise negative. PHYSICAL EXAMINATION: GENERAL: Patient is a pleasant gentleman, who is in no acute distress. The patient appears his stated age. VITAL SIGNS: Blood pressure 113/63, pulse 72, temperature afebrile. NEUROLOGIC: The patient is alert and oriented x3 with no focal neurologic deficits. HEENT: Sclerae without icterus. Mouth has moist mucous membranes with normal pallor. NECK: No JVD. Carotid upstroke brisk. No bruits bilaterally. LUNGS: Clear to auscultation with unlabored respirations. BACK: No scoliosis or kyphosis. CARDIAC: Irregularly irregular. ABDOMEN: Soft, nontender, nondistended. No peritoneal signs present. No hepatosplenomegaly. No abnormal striae. EXTREMITIES: 2+ femoral and 2+ dorsalis pedis pulses. No cyanosis, clubbing, or edema. SKIN: No gross abnormalities. PERTINENT LABORATORY DATA: Hemoglobin 11.4, hematocrit 35.0, white blood cell count 3.0, platelet count 126. Creatinine 1.45 with a GFR 45, potassium 3.9. BNP of 164. IMPRESSION: 1. New onset atrial fibrillation. 2. Cirrhosis. 3. Coronary artery disease. 4. Status post stent placement. RECOMMENDATIONS: The patient is currently rate controlled on metoprolol. We will continue. He has had a significant weight gain, likely due to combination of a cirrhosis and atrial fibrillation. Continue IV Lasix as prescribed. The patient will likely need 24 to 48 hours in the hospital. Given that he is rate controlled and once he is diuresed, he will be okay from my standpoint to discharge home with close outpatient followup. Job ID: [id number]
[2019-11-25] MEDS ORDERED: Potassium Chloride 20 MEQ TAB PO SCH (20:00)
[2019-11-25] MEDS: Atorvastatin Calcium 40 MG TAB PO SCH (20:23)
[2019-11-25] MEDS: Aspirin 81 mg Enteric Coated Tablet PO SCH (20:24)
--- NOTE | 2019-11-26 06:05 | PDOC.FM ---
Addendum entered and electronically signed by Raji Wong DO 11/26/19 08:11 : I/O's updated this morning. Pt current net -3.5L Original Note: - Subjective Subjective: pt feeling well this morning. Denies any CP, SOB, or palpitations. Denies any changes with ambulation or exertion currently. States he feels less swollen. - Objective Vital Signs & Weight: Vital Signs (12 hours) Temp Pulse Resp BP Pulse Ox 11/26/19 03:34 97.5 F L 92 20 130/64 96 11/25/19 20:00 98 Weight Weight 156.126 kg I&O: 11/24/19 11/25/19 11/26/19 06:59 06:59 06:59 Intake Total 700 700 Output Total 1575 1800 Balance -875 -1100 Result Diagrams: 11/25/19 03:35 11/26/19 06:19 Phys Exam - Physical Examination Constitutional: NAD HEENT: sclera anicteric Neck: full ROM Respiratory: clear to auscultation bilateral Irregularly irregulary, normal rate Gastrointestinal: soft, non-tender 1-2+ minimally pitting LE edema Neurological: moves all 4 limbs Psychiatric: normal affect, A&O x 3 Dx/Plan (1) New onset a-fib Code(s): I48.91 - UNSPECIFIED ATRIAL FIBRILLATION Status: Acute (2) Volume overload Code(s): E87.70 - FLUID OVERLOAD, UNSPECIFIED Status: Acute (3) CAD (coronary artery disease) Code(s): I25.10 - ATHSCL HEART DISEASE OF [place] CORONARY ARTERY W/O ANG PCTRS Status: Chronic (4) Diabetes mellitus type 2 in obese Code(s): E11.9 - TYPE 2 DIABETES MELLITUS WITHOUT COMPLICATIONS; E66.9 - OBESITY , UNSPECIFIED Status: Chronic (5) Hypertension Code(s): I10 - ESSENTIAL (PRIMARY) HYPERTENSION Status: Chronic (6) Pancytopenia Code(s): D61.818 - OTHER PANCYTOPENIA Status: Chronic (7) S/P coronary artery stent placement Status: Chronic (8) Splenomegaly Code(s): R16.1 - SPLENOMEGALY, NOT ELSEWHERE CLASSIFIED Status: Chronic - Plan Plan: New onset atrial fibrillation likely 2/2 fluid overload -Consult cards, Dr. Fuller - agreed with current plan of care -Eliquis 5mg BID for anticoag -TTE report pending -40mg daily lasix - currently is net -2L - Once daily lasix from BID due to Cr elevation -Fluid restriction, strict I/O and daily weights Cirrhosis due to fatty liver disease -Bili and albumin are normal -Recent abdominal US shows hepatocellular disease with fatty infiltration, cholelithiasis, and splenomegaly -Outpt work up DM2 -Continue home meds -Diabetic protocols per orders CAD -Continue home imdur, atrovastatin, and aspirin CHF -Continue metoprolol and spironolactone -Echo report is pending -No previous diagnosis, likely 2/2 to new onset Afib NORTH on CKD 3, likely related to poor cardiac output -Furosemide to treat, trend with AM BMP -Adjust diuresis accordingly Macrocytic anemia -Hgb 11.3, MCV 100.0 -Likely relate to his liver disease -Borderline Folate - add supplement Thrombocytopenia -Again, likely realted to liver disease HTN -Continue home meds HLD -Continue home meds Code: Full Prophylaxis: Eliquis Family: None at bedside Fluids: SL Diet: HH Disopsition: DC in 1-2 days PCP: CC Addendum - Attending - Attending Attestation Date/Time: 11/26/19 1041 I personally evaluated the patient and discussed the management with Dr. Wong I agree with the History, Examination, Assessment and Plan documented above with any addition or exceptions noted below. Continue diuresis, monitor renal function. Monitoring HR with cardiology. Hopeful dc tomorrow.
[2019-11-26] MEDS: Furosemide 40 MG/4 ML VIAL SLOW IVP SCH (06:06)
[2019-11-26 06:52] LABS: Anion Gap 17 mmol/L (10-20); Calc. Creatinine Clearance 96 mL/min (70-130); Calcium 9.3 mg/dL (7.8-10.44); Carbon Dioxide 25 mmol/L (23-31); Chloride 102 mmol/L (98-107); Estimated GFR-MDRD 42; Glucose 97 mg/dL (80-115); Potassium 3.8 mmol/L (3.5-5.1); Sodium 140 mmol/L (136-145)
[2019-11-26] MEDS: glipiZIDE 5 MG TAB PO SCH (07:24)
[2019-11-26] MEDS ORDERED: Potassium Chloride 20 MEQ TAB PO SCH (08:30)
[2019-11-26] MEDS: Metoprolol Tartrate 25 MG TAB PO SCH (08:31)
[2019-11-26] MEDS: Multivitamin W/ Minerals 1 TAB PO SCH (08:31)
[2019-11-26] MEDS: Fenofibrate Nanocrystallized 145 MG TAB PO SCH (08:31)
[2019-11-26] MEDS: Apixaban 5 MG TAB PO SCH ×2 (08:31→20:20)
[2019-11-26] MEDS: Folic Acid/Vit B Comp W-C PO SCH (08:31)
[2019-11-26] MEDS ORDERED: Furosemide 40 MG/4 ML VIAL SLOW IVP SCH (09:00)
[2019-11-26] MEDS: Aspirin 81 mg Enteric Coated Tablet PO SCH (20:20)
[2019-11-26] MEDS: Atorvastatin Calcium 40 MG TAB PO SCH (20:20)
[2019-11-27 04:37] LABS: Anion Gap 15 mmol/L (10-20); Calc. Creatinine Clearance 97 mL/min (70-130); Calcium 9.1 mg/dL (7.8-10.44); Carbon Dioxide 25 mmol/L (23-31); Chloride 102 mmol/L (98-107); Estimated GFR-MDRD 43; Glucose 89 mg/dL (80-115); Potassium 3.7 mmol/L (3.5-5.1); Sodium 138 mmol/L (136-145)
--- NOTE | 2019-11-27 06:12 | PDOC.FM ---
- Subjective Subjective: Notes episode of heart racing last night after he had a blood pressure cuff get uncomfortably tight on his arm followed by ambulating around the room. Resolved after about 30 minutes. No lightheadedness or dizziness accompanying. No CP or SOB. Continues to urinate frequently with diuresis. - Objective Vital Signs & Weight: Vital Signs (12 hours) Temp Pulse Resp BP Pulse Ox 11/27/19 03:40 97.2 F L 72 18 143/62 H 96 11/27/19 00:00 89 20 11/26/19 20:00 96.4 F L 85 20 130/62 99 11/26/19 19:19 99 Weight Weight 148.642 kg I&O: 11/25/19 11/26/19 11/27/19 06:59 06:59 06:59 Intake Total 700 1180 1450 Output Total 1577 4692 0472 Balance -870 -4375 -9085 Result Diagrams: 11/25/19 03:35 11/27/19 03:36 Phys Exam - Physical Examination Constitutional: NAD HEENT: moist MMs, sclera anicteric Neck: full ROM Respiratory: clear to auscultation bilateral (difficult to auscultate due to body habitus) Irregularly irregular with normal rate Gastrointestinal: soft Musculoskeletal: edema present (1+ non pitting LE edema) Neurological: moves all 4 limbs Psychiatric: normal affect, A&O x 3 Skin: no rash, cap refill <2 seconds Dx/Plan (1) New onset a-fib Code(s): I48.91 - UNSPECIFIED ATRIAL FIBRILLATION Status: Acute (2) Volume overload Code(s): E87.70 - FLUID OVERLOAD, UNSPECIFIED Status: Acute (3) CAD (coronary artery disease) Code(s): I25.10 - ATHSCL HEART DISEASE OF [place] CORONARY ARTERY W/O ANG PCTRS Status: Chronic (4) Diabetes mellitus type 2 in obese Code(s): E11.9 - TYPE 2 DIABETES MELLITUS WITHOUT COMPLICATIONS; E66.9 - OBESITY , UNSPECIFIED Status: Chronic (5) Hypertension Code(s): I10 - ESSENTIAL (PRIMARY) HYPERTENSION Status: Chronic (6) Pancytopenia Code(s): D61.818 - OTHER PANCYTOPENIA Status: Chronic (7) S/P coronary artery stent placement Status: Chronic (8) Splenomegaly Code(s): R16.1 - SPLENOMEGALY, NOT ELSEWHERE CLASSIFIED Status: Chronic - Plan Plan: New onset atrial fibrillation likely 2/2 fluid overload -Consult cards, Dr. Fuller/oCoper - Changed metoprolol from tartate to succinate -Eliquis 5mg BID for anticoag -TTE report pending -40mg daily lasix - currently is net -5L - Once daily lasix from BID due to Cr elevation -Fluid restriction, strict I/O and daily weights Cirrhosis due to fatty liver disease -Bili and albumin are normal -Recent abdominal US shows hepatocellular disease with fatty infiltration, cholelithiasis, and splenomegaly -Outpt work up DM2 -Continue home meds -Diabetic protocols per orders CAD -Continue home imdur, atrovastatin, and aspirin CHF -Continue metoprolol and spironolactone -Echo report is pending -No previous diagnosis, likely 2/2 to new onset Afib NORTH on CKD 3, likely related to poor cardiac output -Furosemide to treat, trend with AM BMP -Adjust diuresis accordingly Macrocytic anemia -Likely relate to his liver disease -Borderline Folate - add supplement Thrombocytopenia -Again, likely realted to liver disease HTN -Continue home meds HLD -Continue home meds Code: Full Prophylaxis: Eliquis Family: None at bedside Fluids: SL Diet: HH Disopsition: Poss DC today. If not expect tomorrow. PCP: FRANCES Addendum - Attending - Attending Attestation Date/Time: 11/27/19 1026 I personally evaluated the patient and discussed the management with Dr. Wong. I agree with the History, Examination, Assessment and Plan documented above with any addition or exceptions noted below. Patient here with new onset AFib RVR in setting of volume overload from NAFLD and cirrhosis. He is diuresing well. HR has overall been better but now back in RVR. Cardiology on board. Increasing Metoprolol today.
[2019-11-27] MEDS: Potassium Chloride 20 MEQ TAB PO SCH (07:07)
[2019-11-27] MEDS: glipiZIDE 5 MG TAB PO SCH (07:07)
[2019-11-27] MEDS: Folic Acid/Vit B Comp W-C PO SCH (08:35)
[2019-11-27] MEDS: Multivitamin W/ Minerals 1 TAB PO SCH (08:35)
[2019-11-27] MEDS: Furosemide 40 MG/4 ML VIAL SLOW IVP SCH (08:35)
[2019-11-27] MEDS: Fenofibrate Nanocrystallized 145 MG TAB PO SCH (08:35)
[2019-11-27] MEDS: Apixaban 5 MG TAB PO SCH ×2 (08:35→19:51)
[2019-11-27 10:04] LABS: Troponin I 0.017 ng/mL (< 0.028)
[2019-11-27] MEDS ORDERED: Metoprolol Tartrate 5 MG/5 ML VIAL IVP SCH (10:15)
[2019-11-27 15:23] LABS: Troponin I 0.015 ng/mL (< 0.028)
[2019-11-27] MEDS: Atorvastatin Calcium 40 MG TAB PO SCH (19:51)
[2019-11-27] MEDS: Aspirin 81 mg Enteric Coated Tablet PO SCH (19:51)
[2019-11-28 04:54] LABS: Anion Gap 13 mmol/L (10-20); Calc. Creatinine Clearance 99 mL/min (70-130); Calcium 9.1 mg/dL (7.8-10.44); Carbon Dioxide 27 mmol/L (23-31); Chloride 103 mmol/L (98-107); Estimated GFR-MDRD 44; Glucose 110 mg/dL (80-115); Potassium 3.6 mmol/L (3.5-5.1); Sodium 139 mmol/L (136-145)
--- NOTE | 2019-11-28 07:10 | PDOC.FM ---
- Subjective Subjective: Patient was resting comfortably in his hospital bed at the time of evaluation, and denied any acute overnight events, particularly with regard to chest pain, worsening cough or SOB or noticeable peripheral edema. - Objective Vital Signs & Weight: Vital Signs (12 hours) Temp Pulse Resp BP Pulse Ox 11/28/19 04:48 98 11/28/19 04:14 97.7 F 84 18 100/52 L 95 11/28/19 00:00 110/64 11/27/19 19:48 98.3 F 79 18 108/66 98 Weight Weight 149.912 kg I&O: 11/26/19 11/27/19 11/28/19 06:59 06:59 06:59 Intake Total 1180 1450 1110 Output Total 6812 0532 1827 Balance -2645 -1275 -715 Result Diagrams: 11/25/19 03:35 11/28/19 04:05 Phys Exam - Physical Examination Constitutional: NAD HEENT: PERRLA, moist MMs, sclera anicteric, oral pharynx no lesions Neck: no nodes, supple, full ROM Respiratory: no wheezing, no rales, no rhonchi, clear to auscultation bilateral Cardiovascular: no significant murmur, no rub Irregularly irregular, rate-controlled Gastrointestinal: soft, non-tender, no distention, positive bowel sounds Musculoskeletal: pulses present Trace pitting edema to the mid-[place] Neurological: non-focal, moves all 4 limbs Lymphatic: no nodes Psychiatric: normal affect, A&O x 3 Skin: no rash Dx/Plan (1) Cirrhosis of liver not due to alcohol Status: Acute (2) New onset a-fib Code(s): I48.91 - UNSPECIFIED ATRIAL FIBRILLATION Status: Acute (3) Volume overload Code(s): E87.70 - FLUID OVERLOAD, UNSPECIFIED Status: Acute (4) CAD (coronary artery disease) Code(s): I25.10 - ATHSCL HEART DISEASE OF [place] CORONARY ARTERY W/O ANG PCTRS Status: Chronic (5) Diabetes mellitus type 2 in obese Code(s): E11.9 - TYPE 2 DIABETES MELLITUS WITHOUT COMPLICATIONS; E66.9 - OBESITY , UNSPECIFIED Status: Chronic (6) Hypertension Code(s): I10 - ESSENTIAL (PRIMARY) HYPERTENSION Status: Chronic (7) Macrocytic anemia Code(s): D53.9 - NUTRITIONAL ANEMIA, UNSPECIFIED Status: Chronic (8) Pancytopenia Code(s): D61.818 - OTHER PANCYTOPENIA Status: Chronic (9) NSTEMI (non-ST elevated myocardial infarction) Code(s): I21.4 - NON-ST ELEVATION (NSTEMI) MYOCARDIAL INFARCTION Status: Acute - Plan Plan: Patient is a 64 y/o male who presents to the ED for evaluation of fatigue, weight gain and palpitations. 1. New onset A-Fib -Likely 2/2 to fluid overload -Started on Lasix 40 mg IV - currently down 5.5L since admission -Cardiology: Consulted, changed Metoprolol Tartrate to Succinate, recs appreciated -Started on Eliquis 5 mg PO BID -TTE: Pending Cirrhosis due to fatty liver disease -Bili and albumin are normal -Recent abdominal US shows hepatocellular disease with fatty infiltration, cholelithiasis, and splenomegaly -Outpt work up DM2 -Continue home meds -Diabetic protocols per orders CAD -Continue home imdur, atrovastatin, and aspirin CHF -TTE: Pending -Will continue Metoprolol and Spironolactone -No previous diagnosis, likely 2/2 to #1 -Fluid restriction, strict I/O and daily weights NORTH on CKD 3, likely related to poor cardiac output -Furosemide to treat, trend with AM BMP -Adjust diuresis accordingly Macrocytic anemia -Likely relate to his liver disease -Borderline Folate - add supplement Thrombocytopenia -Again, likely realted to liver disease HTN -Continue home meds HLD -Continue home meds PCP: CC Code: Full Diet: HH VTE PPx: Eliquis Fluids: SL Dispo: Patient is currently stable and admitted to the Telemetry Floor for evaluation of new-onset A-Fib. Will await results of TTE and continue to adjust Furosemide regimen due to CKD3. Will likely need to plan for continued outpatient management of A-Fib, CHF and CKD. Expected LOS <24H. Addendum - Attending - Attending Attestation Date/Time: 11/28/19 1203 I personally evaluated the patient and discussed the management with Dr. Hameed I agree with the History, Examination, Assessment and Plan documented above with any addition or exceptions noted below. Patient is a 64 y/o male being treat for new onset afib and acute on chronic CHF exacerbation. Extensive history of CAD. Down 5.5L since admission, rate controlled on metoprolol. Will need outpatient follow up for fatty liver disease. Anticipate discharge today on 40mg lasix daily. Follow up with Nephrology and Cardiology outpt. RA Doherty
[2019-11-28] MEDS: Folic Acid/Vit B Comp W-C PO SCH (09:00)
[2019-11-28] MEDS: glipiZIDE 5 MG TAB PO SCH (09:00)
[2019-11-28] MEDS: Apixaban 5 MG TAB PO SCH (09:00)
[2019-11-28] MEDS: Furosemide 40 MG/4 ML VIAL SLOW IVP SCH (09:00)
[2019-11-28] MEDS: Potassium Chloride 20 MEQ TAB PO SCH (09:00)
[2019-11-28] MEDS: Multivitamin W/ Minerals 1 TAB PO SCH (09:00)
[2019-11-28] MEDS: Fenofibrate Nanocrystallized 145 MG TAB PO SCH (09:00)
--- NOTE | 2019-11-28 10:17 | PRG ---
DATE OF SERVICE: 11/28/2019 SUBJECTIVE: Mr. Quiros is doing much better. He has lost 14 pounds over the last several days. He is rate controlled. He is currently on anticoagulation therapy. His echo did suggest LVEF of 50% to 55%, although it is a very technically difficult study, likely due to body habitus. OBJECTIVE: GENERAL: Patient is a pleasant male who is in no acute distress. The patient appears their stated age. VITAL SIGNS: Blood pressure 120/67, pulse 85, temperature 98.5. NEUROLOGIC: The patient is alert and oriented x3 with no focal neurologic deficits. HEENT: Sclerae without icterus. Mouth has moist mucous membranes with normal pallor. NECK: No JVD. Carotid upstroke brisk. No bruits bilaterally. LUNGS: Clear to auscultation with unlabored respirations. BACK: No scoliosis or kyphosis. CARDIAC: Irregularly irregular. ABDOMEN: Soft, nontender, nondistended. No peritoneal signs present. No hepatosplenomegaly. No abnormal striae. EXTREMITIES: 2+ femoral and 2+ dorsalis pedis pulses. No cyanosis, clubbing, or edema. SKIN: No gross abnormalities. PERTINENT LABORATORY DATA: Hemoglobin 11.4. Creatinine 1.59, GFR 44. IMPRESSION: 1. Atrial fibrillation, new onset. 2. Coronary artery disease, status post stent placement. 3. Diabetes mellitus. RECOMMENDATIONS: Mr. Quiros is rate controlled. His LVEF does appear within normal limits. We will continue current treatment. We would recommend outpatient Lasix therapy in addition to rate control with metoprolol succinate. Continue Eliquis. We will consider outpatient cardioversion. He does have a history of CAD and would need amiodarone therapy with loading, although based on his current liver status, it may be difficult. I will discuss further as an outpatient. Otherwise, I have no further recommendations. Okay for discharge from my standpoint. Job ID: [id number]
--- NOTE | 2019-11-28 10:45 | PQF ---
CLINICAL DOCUMENTATION IMPROVEMENT CLARIFICATION FORM: ICD-10 Updated PLEASE DO AN ADDENDUM TO THE PROGRESS NOTE WITH ANY DOCUMENTATION UPDATES OR ADDITIONS AND CARRY THROUGH TO DC SUMMARY. THANK YOU. DATE: 11/28/19 ATTN: DR. GIPSON Please exercise your independent, professional judgment in responding to the clarification form. Clinical indicators are provided on the bottom of this form for your review Please check appropriate box(s): HEART FAILURE: A. ACUITY [ ] Acute [ X ] Acute on Chronic [ ] Chronic B. TYPE [ ] Systolic / HFrEF [ X ] Diastolic / HFpEF [ ] Combined Systolic / Diastolic [ ] Hypertensive Heart and Kidney disease [ ] Hypertensive Heart Disease [ ] Hypertensive Kidney Disease [ ] Other diagnosis [ ] Unable to determine In addition, please specify: Present on Admission (POA): [ X ] Yes [ ] No [ ] Unable to determine For continuity of documentation, please document condition throughout progress notes and discharge summary. Thank You. CLINICAL INDICATORS - SIGNS / SYMPTOMS / LABS / RESULTS AND LOCATION IN EMR ER NOTE: "TROUBLE BREATHING, INCREASED SWELLING, 30 POUND WEIGHT GAIN." H&P: "POSSIBLE NEW ONSET CHF" BNP 11/23: 164.8 RISKS:: AFIB (H&P) HTN (H&P) NORTH ON CKD 3 (PN 11/27) TREATMENT: DAILY WEIGHTS (PN 11/27) STRICT I&Os (PN 11/27) FLUID RESTRICTION (PN 11/27) IV LASIX (ER) (11/26-PRESENT) ECHOCARDIOGRAM 11/27 [employer] Electric Meter Installer [employer] Winform Viewer (This form is maintained as a part of the permanent medical record) 2014 [employer]. All Rights Reserved ANITHA [email or web address] CAUTE
[2019-11-28 15:31] VITALS: BP 133/74; TEMP 98.3
[2019-11-28] MEDS ORDERED: Apixaban 5 MG TAB PO SCH (16:15)
--- NOTE | 2019-11-28 16:27 | EKG ---
Test Reason : Blood Pressure : / mmHG Vent. Rate : 104 BPM Atrial Rate : 104 BPM P-R Int : 000 ms QRS Dur : 102 ms QT Int : 314 ms P-R-T Axes : 000 022 072 degrees QTc Int : 412 ms Atrial fibrillation with rapid ventricular response with premature ventricular or aberrantly conducte d complexes Inferior infarct , age undetermined Poor R wave progression Abnormal ECG Confirmed by DAPHNE AVENDANO, DR. Roman (4) on 11/28/2019 4:27:33 PM Referred By: MIGUEL GODWIN Confirmed By:DR. Jessie SERNA MD
--- NOTE | 2019-11-29 05:55 | DIS ---
DATE OF ADMISSION: 11/24/2019 DATE OF DISCHARGE: 11/28/2019 RESIDENT: Sanjeev Hameed MD ADMITTING ATTENDING: Bulmaro Lynn MD DISCHARGE ATTENDING: Amor Doherty MD PROCEDURES: Chest x-ray indicating cardiomegaly and chronic borderline pulmonary vascular prominence, stable. Echocardiogram indicating a left ventricular ejection fraction estimated between 50% to 55%. Diastolic dysfunction could not be assessed secondary to atrial fibrillation. Technically difficult study with poor endocardial definition. Mild mitral regurgitation present. Moderately thickened trileaflet aortic valve with normal excursion. Mild tricuspid regurgitation. CONSULTS: Dr. Cullen Fuller, Cardiology. PRIMARY DIAGNOSIS: New onset atrial fibrillation. SECONDARY DIAGNOSES: 1. Suspected congestive heart failure. 2. Diastolic dysfunction. 3. Cirrhosis secondary to fatty liver disease. 4. Diabetes type 2. 5. Coronary artery disease. 6. Acute kidney injury on chronic kidney disease, type 3. 7. Macrocytic anemia. 8. Thrombocytopenia. 9. Hypertension. 10. Hyperlipidemia. DISCHARGE MEDICATIONS: 1. Apixaban 5 mg p.o. b.i.d. 2. Metoprolol succinate 50 mg p.o. b.i.d. 3. Furosemide 40 mg p.o. daily. DISCONTINUED MEDICATIONS: 1. Aspirin 81 mg p.o. daily. 2. Atorvastatin 40 mg p.o. daily. 3. Fenofibrate 145 mg p.o. daily. 4. Glipizide 5 mg p.o. daily. 5. Iron/minerals/multivitamins one tab p.o. daily. 6. Isosorbide mononitrate 60 mg p.o. daily. 7. Lactulose 10 g p.o. daily. 8. Potassium chloride 20 mEq p.o. daily. 9. Vitamin B complex. 10. Vitamin C. 11. Folic acid one tab p.o. daily. HISTORY OF PRESENT ILLNESS AND HOSPITAL COURSE: The patient is a 64-year-old male with past medical history significant with myocardial infarction x5, stent placement x3, nonalcoholic cirrhosis, fatty liver disease, diabetes type 2, who presents to the ED from clinic, where he was sent by his PA, Yissel Garcia. The patient states that he has felt fatigued, gaining 30 pounds, having lower extremity edema, gradually worsening over the past 2 weeks. The patient also complains of dizziness while bending over, cough, paroxysmal nocturnal dyspnea, and headache. Denies chest pain or palpitations currently; however, over the past 3 months, the patient reports feeling his heart racing for periods of time in the evenings, off and on. He has no known history of atrial fibrillation. The patient had a stress test last year with Dr. Cullen Fuller, which he reports normal. Echo in 2007, estimated ejection fraction 50% to 55% with diastolic dysfunction, hypokinetic inferior left ventricle. The patient sees Dr. Skip Crook for his liver. The patient had an abdominal ultrasound on 11/17, showing fatty infiltrates and splenomegaly. While in the ED, the patient was found to be in atrial fibrillation on EKG. Hemoglobin and hematocrit were measured at 11.3/33.5 with a white blood cell count of 3.1, platelets 115, and MCV of 100. Chest x-ray revealed cardiomegaly, chronic borderline pulmonary vascular prominence and was stable. BNP was measured at 164. D-dimer was measured at 0.36. Creatinine was measured at 1.64. He was given 40 mg of IV Lasix and subsequently transferred to the telemetry unit. While on the telemetry unit, the patient continued to receive IV Lasix and was subsequently diuresed 5.5 L greatly improving his lower extremity edema and his difficulty breathing. Additionally, the patient was kept on continuous director search marketing strategies and was found to be rate controlled throughout the duration of his hospitalization. Cardiology was consulted, who initiated a medication change from metoprolol tartrate to metoprolol succinate b.i.d. dosing. This was continued throughout the duration of his hospitalization. The patient's condition continued to greatly improve and as such, he was subsequently prepped for discharge. Prior to discharge, the patient's vital signs were recorded as temperature 98.3, pulse 71, respirations 20 per minute, O2 saturation 97% on room air, blood pressure 133/74. LABORATORY ANALYSIS: Taken on 11/25/2019 revealed a white blood cell count of 3.0, hemoglobin 11.4, hematocrit 35, platelet count of 126. Coagulation panel performed on 11/24/2019 revealed a PT of 14.2, INR of 1.1, APTT 31.7. D-dimer of 0.36. Chem panel performed on 11/28/2019 revealed a sodium of 139, potassium 3.6, chloride 103, carbon dioxide 27, BUN of 38, creatinine of 1.59, glucose of 110. Troponins were trended throughout his hospitalization, initially found to be 0.011, trending up to 0.012, 0.023 and then down to 0.017 and 0.015. AST 41, ALT 36. Lipase 67. Vitamin B12 of 381, folate 11.3, TSH 1.2725. DISPOSITION: Stable. DISCHARGE INSTRUCTIONS: 1. Location: Home. 2. Diet: Heart healthy, low sodium, carbohydrate conscious. 3. Activity: No restrictions. 4. Followup: The patient was encouraged to follow up with his newly established rn post partum in 2 weeks or discuss the addition of amiodarone to his outpatient medication regimen. Additionally, the patient was also encouraged to follow up with his battery plate assembler, Dr. Costa Kay in 2 weeks in order to discuss ongoing fluid status maintenance with p.oStanislav Lasix. Lastly, the patient was encouraged to follow up with either Dr. Skip Kennedy or his previously established GI specialist in order to discuss ongoing management of his cirrhosis and subsequent incidental finding of elevated AST and ALT during presentation. Lastly, the patient was encouraged to follow up with his primary care physician in approximately 4 weeks in order to discuss his most recent hospitalization and ongoing medical management of multiple common problems. Job ID: [id number]
--- NOTE | 2019-11-30 04:52 | PQF ---
MIGEL MENDOZA ROBERT A MD [id number] CLINICAL DOCUMENTATION CLARIFICATION FORM: POST DISCHARGE Addendum to original discharge summary date: ____ Late entry note date: __ DATE: 11/30/2019 ATTN: Amor Prescott Please exercise your independent, professional judgment in responding to the clarification form. Clinical indicators are provided on the bottom of this form for your review Please check appropriate box(s) to clarify if the following diagnosis has been ruled in or ruled out: NSTEMI [ ] Ruled in diagnosis [ ] Continue to treat [ ] Resolved [ ] Ruled out diagnosis [ ] Cannot rule out diagnosis [ ] Other diagnosis [ ] Unable to determine In addition, please specify: Present on Admission (POA): [ ] Yes [ ] No [ ] Unable to determine For continuity of documentation, please document condition throughout progress notes and discharge summary. Thank You. CLINICAL INDICATORS - SIGNS / SYMPTOMS / LABS Laboratory 11/23 BNP 164.8, Troponin 0.011; 0.012 Vital signs 11/23 BP 140/94, Pulse 93, resp 20, Temp 98.1 H&P p1 11/23 He felt fatigue, gaining 30 lbs and having LE edema, Denies CP or palpitation currently H&P p4 11/23 Admitted to [facility] due to new onset of Afib and possible New onset of CHF with volume overload PN p4 11/27 NSTEMI EKG 11/23 ST segment normal, Y wave normal. No acute findings for ischemia PN p1 11/24 Cardiology:borderline rapid rate with irregular rhythm RISK FACTORS H&P p1 11/23 64 year-old male H&P p1 11/23 hx of IN x5 with Stents H&P p1 11/23 DM II H&P p5 11/23 CHF exacerbation H&P 11/23 Afib H&P p5 11/23 NORTH on CKD H&P p5 11/23 CAD H&P p1 11/23 Liver cirrhosis H&P p2 11/23 HTN H&P p6 11/23 HLD FM PN p2 11/24 Obesity TREATMENTS SEP 14 K-Dur 40meq oral Sep 14 IV Ns 1L SEP 14 Aspirin 81mg oral SEP 14 Eliquis 5mg oral YESENIA 11/27 Cardiology consult 11/24 -Cullen Coleman ED Notes 11/23 - EKG (This form is maintained as a part of the permanent medical record) 2014 [employer]. All Rights Reserved [email or web address]
[2019-12-01 15:23] LABS: BUN (Urea Nitrogen) 35 mg/dL (8.4-25.7)
[2019-12-01 15:24] LABS: BUN (Urea Nitrogen) 34 mg/dL (8.4-25.7)
[2019-12-01 15:25] LABS: BUN (Urea Nitrogen) 32 mg/dL (8.4-25.7)
== END 2019-11-28 18:40 | disposition home or self-care (01) | DRG 291 ==
LOC: ERS 13:33 → 2NO 19:28
PROVIDERS: ADMIT Emergency Medicine; ATTEND Emergency Medicine
DX: I13.0 Hypertensive heart and chronic kidney disease with heart failure and stage 1 through stage 4 chronic kidney disease, or unspecified chronic kidney disease (principal); I50.33 Acute on chronic diastolic (congestive) heart failure; N17.9 Acute kidney failure, unspecified; D61.818 Other pancytopenia; Z68.41 Body mass index [BMI] 40.0-44.9, adult; I48.0 Paroxysmal atrial fibrillation; I25.10 Atherosclerotic heart disease of native coronary artery without angina pectoris; K76.0 Fatty (change of) liver, not elsewhere classified; R16.1 Splenomegaly, not elsewhere classified; N18.3 Chronic kidney disease, stage 3 (moderate); E78.5 Hyperlipidemia, unspecified; E66.9 Obesity, unspecified; K74.60 Unspecified cirrhosis of liver; E11.22 Type 2 diabetes mellitus with diabetic chronic kidney disease; I08.1 Rheumatic disorders of both mitral and tricuspid valves; Z95.5 Presence of coronary angioplasty implant and graft; I25.2 Old myocardial infarction; Z79.899 Other long term (current) drug therapy; Z79.82 Long term (current) use of aspirin; Z79.84 Long term (current) use of oral hypoglycemic drugs
CPT/HCPCS: 36415; 36416; 71045; 80048; 80053; 81003; 82607; 82728; 82746; 83036; 83540; 83550; 83690; 83735; 83880; 84100; 84443; 84484; 85025; 85379; 85610; 85730; 87086; 93005; 93010; 93306; 96374; J1940

== ENCOUNTER 2020-05-07 12:50 | Inpatient (IN) | payer MEDICARE, OTHER ==
--- NOTE | 2020-05-07 13:13 | RAD ---
Exam: Chest one view HISTORY:Patient feels he is full of fluid. Shortness of breath. Comparison: 11/24/2019 FINDINGS: Cardiac silhouette:Enlarged cardiac silhouette Aorta: Atherosclerosis of the aortic knob Pulmonary vessels: Normal Costophrenic angles: Clear LUNGS: No masses or consolidation. Pneumothorax: None Osseous abnormalities: No acute osseous abnormalities. Incompletely evaluated left humeral prosthesis . IMPRESSION: 1. Cardiomegaly, without evidence of congestive heart failure. 2. Atherosclerosis.
[2020-05-07 13:25] LABS: #Eosinphils 0.1 thou/uL (0.0-0.7); #Lymphocytes 0.6 thou/uL (1.20-3.40); #Monocytes 0.4 thou/uL (0.11-0.59); #Neutrophils 3.3 thou/uL (1.40-6.50); %Basophils 0.2 % (0.0-1.0); %Eosinophils 1.6 % (0.0-10.0); %Lymphocytes 14.1 % (21.0-51.0); %Monocytes 9.7 % (0.0-10.0); %Neutrophils 74.4 % (42.0-75.0); Mean Corpuscular HGB CONC 33.7 g/dL (32.0-36.0); Mean Corpuscular Hemoglobin 33.6 pg (27.0-31.0); Mean Corpuscular Volume 99.5 fL (78.0-98.0); Mean Platelet Volume 8.6 fL (7.4-10.4); Platelet Count 139 thou/uL (130-400); Red Blood Cell (RBC) Count 3.26 mill/uL (4.70-6.10); White Blood Cell (WBC) Count 4.5 thou/uL (4.8-10.8)
[2020-05-07 13:57] LABS: Albumin 3.7 g/dL (3.4-4.8)
[2020-05-07 13:58] LABS: Calcium 8.8 mg/dL (7.8-10.44); Chloride 104 mmol/L (98-107); Potassium 4.2 mmol/L (3.5-5.1); Sodium 139 mmol/L (136-145)
[2020-05-07 13:59] LABS: Globulin 2.9 g/dL (2.4-3.5); Glucose 111 mg/dL (80-115); Protein, Total 6.6 g/dL (5.8-8.1)
[2020-05-07 14:01] LABS: Anion Gap 13 mmol/L (10-20); Carbon Dioxide 26 mmol/L (23-31)
[2020-05-07 14:02] LABS: Alkaline Phosphatase 94 U/L (40-110); Calc. Creatinine Clearance 0 mL/min (70-130); Estimated GFR-MDRD 45
[2020-05-07 14:03] LABS: BUN (Urea Nitrogen) 35 mg/dL (8.4-25.7)
[2020-05-07 14:04] LABS: AST (SGOT) 32 U/L (5-34)
[2020-05-07 14:05] LABS: ALT (SGPT) 31 U/L (8-55)
--- NOTE | 2020-05-07 14:36 | PDOC.FPRHP ---
- History of Present Illness Chief Complaint: SOB History of Present Illness: Pt is a 65 yo male with PMH a fib, cirrhosis, DM2 who presents with SOB and edema. Has noticed increased swelling of LE for past week. Has gained 30 pounds in 1-2 weeks. Last 2 days has had SOB and swelling increasing to abdomen, face, and hands. Positive for orthopnea. Is on 40 meq lasix daily but increased to 80 for the past 5 days with no relief of swelling. SOB worse with activity. About 2 months ago had cardiac stents placed at [facility] in [place]. This was in preparation for cardiac clearance for upcoming renal surgery. Lesion found on right kidney, followed by doctor in [place]. Also on liver transplant list for cirrhosis 2/2 NAFLD. Denies CP, N/V, dysuria. ED Course: Clindamycin 600mg, Lasix 40 mg IV - Allergies/Adverse Reactions Allergies Allergy/AdvReac Type Severity Reaction Status Date / Time codeine Allergy Intermediate Hives Verified 11/24/19 23:02 - Home Medications Medication Instructions Recorded Confirmed Type Multivit-Min/FA/Lycopene/Lut 1 tab PO DAILY 11/09/13 05/07/20 History [Centrum Silver] Aspirin [Aspir-Low] 81 mg PO HS 10/06/16 05/07/20 History Atorvastatin Calcium 40 mg PO HS 10/06/16 05/07/20 History Fenofibrate [Tricor] 160 mg PO HS 10/06/16 05/07/20 History Isosorbide Mononitrate [Imdur] 1 tab PO DAILY 02/28/18 05/07/20 History Lactulose 10 GM/15ML Oral Zabrina 15 - 30 ml PO DAILY 11/24/19 05/07/20 History [Lactulose] Pioglitazone HCl [Actos] 45 mg PO DAILY 11/24/19 05/07/20 History glipiZIDE [Glipizide] 5 mg PO HS 11/24/19 05/07/20 History Spironolactone 50 mg PO DAILY 11/25/19 05/07/20 History Apixaban [Eliquis] 5 mg PO BID 30 Days #60 tab 11/28/19 05/07/20 Rx Folic Acid/Vit B Comp W-C 1 tab PO DAILY tab 11/28/19 05/07/20 Rx [Nephro-Ronnie] Furosemide [Lasix] 40 mg PO DAILY 30 Days #30 tablet 11/28/19 05/07/20 Rx Metoprolol Succinate [Toprol XL] 50 mg PO BID 30 Days #60 tab 11/28/19 05/07/20 Rx Clopidogrel Bisulfate [Plavix] 05/07/20 History Ezetimibe [Zetia] 05/07/20 History - History PMHx: a fib, cirrhosis 2/2 NAFLD, FL x4, CAD s/p stents, YANICK, DM2, CKD PSHx: Cardiac stents, appendectomy, shoulder, 3 toes amputated on R foot FHx: Dad- FL, Brother- HTN, DM Social: denies T/A/D - Review of Systems General: reports: weight/appetite/sleep changes. denies: fever/chills Eyes: denies: vision changes ENT: denies: nasal congestion, rhinorrhea Respiratory: reports: shortness of breath. denies: cough, congestion Cardiovascular: reports: edema, orthopnea. denies: chest pain Gastrointestinal: denies: nausea, vomiting, diarrhea, abdominal pain Genitourinary: denies: dysuria, polyuria Skin: denies: rashes, jaundice Musculoskeletal: denies: pain, tenderness Neurological: denies: syncope, weakness - Vital signs BP: [] HR: [] RR: [] Tmax: [] Pox: []% on [] Wt: 166 kg BP 121/59, HR 85, RR 18, Temp 98.5F, O2 98% on RA, Wt 166.5kg - Physical Exam Constitutional: awake, alert and oriented -Constitutional: morbidly obese HEENT: normocephalic and atraumatic, no scleral icterus, grossly normal vision, grossly normal hearing Neck: supple, FROM Heart: no murmurs/rubs/gallops -Heart: irregularly irregular rhythm, normal rate, 2+ pitting edema of b/l LE Lungs: CTAB, no respiratory distress, no wheezing Abdomen: soft, non-tender -Abdomen: mild distention Musculoskeletal: normal structure, normal tone, ROM grossly normal Neurological: no focal deficit, normal sensation -Skin: b/l LE: violaceous coloration up to mid-song, multiple ulcers noted in different stages of healing, some with exudate, small vesicles noted Heme/Lymphatic: no unusual bruising or bleeding, no purpura Psychiatric: normal mood and affect, good judgment and insight, intact recent and remote memory FMR H&P: Results - Labs Result Diagrams: 05/07/20 13:16 05/07/20 13:16 Lab results: WBC 4.5 thou/uL (4.8-10.8) L 05/07/20 13:16 Hgb 11.0 g/dL (14.0-18.0) L 05/07/20 13:16 Hct 32.5 % (42.0-52.0) L 05/07/20 13:16 MCV 99.5 fL (78.0-98.0) H 05/07/20 13:16 Plt Count 139 thou/uL (130-400) 05/07/20 13:16 Neutrophils % 74.4 % (42.0-75.0) 05/07/20 13:16 Sodium 139 mmol/L (136-145) 05/07/20 13:16 Potassium 4.2 mmol/L (3.5-5.1) 05/07/20 13:16 Chloride 104 mmol/L (98-107) 05/07/20 13:16 Carbon Dioxide 26 mmol/L (23-31) 05/07/20 13:16 BUN 35 mg/dL (8.4-25.7) H 05/07/20 13:16 Creatinine 1.55 mg/dL (0.7-1.3) H 05/07/20 13:16 Glucose 111 mg/dL (80-115) 05/07/20 13:16 Calcium 8.8 mg/dL (7.8-10.44) 05/07/20 13:16 Total Bilirubin 1.0 mg/dL (0.2-1.2) 05/07/20 13:16 AST 32 U/L (5-34) 05/07/20 13:16 ALT 31 U/L (8-55) 05/07/20 13:16 Alkaline Phosphatase 94 U/L (40-110) 05/07/20 13:16 B-Natriuretic Peptide 214.4 pg/mL (0-100) H 05/07/20 13:16 Serum Total Protein 6.6 g/dL (5.8-8.1) 05/07/20 13:16 Albumin 3.7 g/dL (3.4-4.8) 05/07/20 13:16 - EKG Interpretation EKG: reviewed, a fib - Radiology Interpretation Chest x-ray Status: report reviewed by me FMR H&P: A/P - Plan #Volume Overload 2/2 suspected HF -CXR: cardiomegaly, no acute process -echo 11/2019: EF 50-55%, unable to assess diastolic function due to a fib -Lasix 40mg IV bid -Diet: HH, low sodium, fluid restrict -daily weights, strict I/Os #Venous Insufficiency -chronic b/l LE skin changes -wound care consulted: b/l LE ulcerations -given clindamycin in ED, will not continue #cirrhosis 2/2 NAFLD -volume overload likely also due to cirrhosis -pending PT/PTT/INR -will calculate MELD score -is on liver transplant list, last MELD score 13 -continue home meds #a fib -on eliquis -rate controlled #CAD s/p stent -stents placed about 2 months ago -on plavix #YANICK -on cpap at home -ordered cpap here #CKD -BUN/Cr -sees Dr. Kay outpatient -has upcoming surgery in [place] for lesion on R kidney #DM2 -unsure of last A1c -on glipizide and actos at home, has stopped all other meds and replaced with apple cider vinegar -pending A1c -SSI and accuchekcs ACHS Code: Full PCP: OOT IVF: SL Diet: HH, fluid restrict, CC Dispo: Admit tele obs, will diurese w/ IV lasix and monitor, LOS < 48hrs FMR H&P: Upper Level - Plan Date/Time: 05/07/20 1436 Mr Quiros is a 65yo male with pmh of FL x5, nonalcoholic cirrhosis and HTN presents for bilateral LE edema causing blistering and >25lb wt gain over the last 2 weeks. Reports blistering started approx. 1.5wks ago. Endorses orthopnea. Reports he increased his Lasix to 80mg daily 3 days ago but continued to worsen. General: NAD CV: RRR, no murmurs Pulm: CTA b/l Abdomen: Distended Extremities: 2+ pitting edema to knees, erythema and blistering pressent A/P: Volume overload 2/2 Likely Acute HFpEF exacerbation -CXR with cardiomegaly. BNP 214. Trop neg. EKG in Afib. Weight up 16kg from discharge wt. Likely a component of cirrhosis contributing. Echo 11/28/19: EF 50- 55%, unable to assess for diastolic dysfun due to afib. Immigration Associate is Dr Fuller. Admit to telemetry. Will diuresis with IV lasix, monitor strict I&)s and wt. Trend BMPs. Cirrhosis -Sees Dr Armaan shenpt. On Liver transplant wt list. Will order coag panel to calc MELD. I, Yaritza Corado, have evaluated this patient and agree with findings/plan as outlined by international organizer resident. Pertinent changes/additions are listed here. Addendum - Attending - Attending Attestation Date/Time: 05/07/20 5533 I personally evaluated the patient and discussed the management with Dr. Cornejo/Mak. I agree with the History, Examination, Assessment and Plan documented above with any addition or exceptions noted below. Patient with history of cirrhosis from NAFLD and CAD with suspected diastolic HF (HFpEF) and Afib here with massive fluid and weight gain over the last 1 week. Reports taking all medications as prescribed. Endorses diffuse edema, in legs, arms, abdomen, and face. +Orthopnea. Has been taking increased diuretics without improvement in symptoms. Reports adherance to diet and fluid restriction. He follows mostly with the [facility] transplant team in [place], but has also had some heart procedures done there recently. On exam, patient in NAD. Exam pertinent for diffuse edema, abdominal distention, and chronic violacious venous changes in the b/l lower extremities. CXR overall clear with no effusions, BNP 200s, stable from previous. Patient will be admitted for fluid overload due to possible HFpEF exacerbation versus worsening cirrhosis with ascites. Calculate MELD. Increase diuresis, fluid restrict. Monitor renal function. Further mgmt pending clinical course.
[2020-05-07] MEDS ORDERED: Clindamycin/D5W 600 mg/50 ml Premix Bag ONE (14:49)
[2020-05-07] MEDS ORDERED: Furosemide 40 MG/4 ML VIAL ONE (14:49)
[2020-05-07] MEDS ORDERED: Ondansetron ODT 4 MG TAB PO PRN (15:21)
[2020-05-07] MEDS ORDERED: Acetaminophen 650 MG Suppository PR PRN (15:21)
[2020-05-07] MEDS ORDERED: Ondansetron PF 4 MG/2 ML Vial IVP PRN (15:21)
[2020-05-07] MEDS ORDERED: Acetaminophen 325 MG TAB PO PRN (15:21)
[2020-05-07] MEDS ORDERED: Dextrose 50% Abboject 50 ML SYRINGE SLOW IVP PRN (15:21)
[2020-05-07] MEDS ORDERED: HumaLOG 300 UNITS/3 ML VIAL SC PRN ×2 (15:21)
[2020-05-07] MEDS ORDERED: Dextrose 5% in Water 1,000 ML IV PRN (15:21)
[2020-05-07 16:11] LABS: Hemoglobin A1c 5.9 % (4.0-6.0); INR-International Normal Ratio 1.4; PTT 40.4 sec (22.9-36.1); Prothrombin Time 17.4 sec (12.0-14.7)
[2020-05-07] MEDS: Apixaban 5 MG TAB PO SCH (20:50)
[2020-05-07] MEDS: Atorvastatin Calcium 40 MG TAB PO SCH (20:51)
[2020-05-07] MEDS: Ezetimibe 10 MG TAB PO SCH (20:51)
[2020-05-07] MEDS: glipiZIDE 5 MG TAB PO SCH (20:51)
[2020-05-08] MEDS: Furosemide 40 MG/4 ML VIAL SLOW IVP SCH ×2 (05:36→14:39)
[2020-05-08 05:55] LABS: ALT (SGPT) 27 U/L (8-55); AST (SGOT) 29 U/L (5-34); Albumin 3.3 g/dL (3.4-4.8); Alkaline Phosphatase 79 U/L (40-110); Anion Gap 14 mmol/L (10-20); BUN (Urea Nitrogen) 36 mg/dL (8.4-25.7); Bilirubin, Total 0.7 mg/dL (0.2-1.2); Calc. Creatinine Clearance 133 mL/min (70-130); Calcium 8.6 mg/dL (7.8-10.44); Carbon Dioxide 25 mmol/L (23-31); Chloride 104 mmol/L (98-107); Estimated GFR-MDRD 57; Globulin 2.9 g/dL (2.4-3.5); Glucose 88 mg/dL (80-115); Potassium 3.6 mmol/L (3.5-5.1); Protein, Total 6.2 g/dL (5.8-8.1); Sodium 139 mmol/L (136-145)
--- NOTE | 2020-05-08 06:11 | PDOC.FM ---
- Subjective Subjective: Pt states his breathing and his LE swelling have improved. He says she has been urinating a lot with lasix treatment. Denies CP, N/V. - Objective Vital Signs & Weight: Vital Signs (12 hours) Temp Pulse Resp BP Pulse Ox 05/08/20 03:58 97.7 F 84 20 109/58 L 97 05/07/20 23:30 96.7 F L 77 20 108/57 L 96 05/07/20 19:56 98.2 F 83 20 119/70 99 Weight Weight 162.528 kg Result Diagrams: 05/07/20 13:16 05/08/20 04:49 Phys Exam - Physical Examination Constitutional: NAD HEENT: moist MMs, sclera anicteric Neck: supple, full ROM Respiratory: no wheezing, clear to auscultation bilateral Cardiovascular: no significant murmur irregular rhythm Gastrointestinal: soft, non-tender Musculoskeletal: edema present Neurological: non-focal, normal sensation Psychiatric: normal affect, A&O x 3 Deviation from normal: b/l LE ulcerations, violaceous skin discoloration Dx/Plan - Plan Plan: #Volume Overload 2/2 suspected HF -CXR: cardiomegaly, no acute process -continue Lasix 40mg IV bid, will increase spironolactone to 100mg daily -Diet: HH, low sodium, fluid restrict -daily weights, strict I/Os -continue to monitor with daily BMP #Venous Insufficiency -chronic b/l LE skin changes -wound care consulted: b/l LE ulcerations -given clindamycin in ED, will not continue #cirrhosis 2/2 NAFLD -volume overload likely also due to cirrhosis -MELD 14 -is on liver transplant list -continue home meds #a fib -on eliquis -rate controlled #CAD s/p stent -stents placed about 2 months ago -on plavix #YANICK -on cpap at home -ordered cpap here #CKD 3 -BUN/Cr 36/1.27, GFR 57. Improving -sees Dr. Kay outpatient -has upcoming surgery in [place] for lesion on R kidney #DM2 -unsure of last A1c -on glipizide and actos at home, has stopped all other meds and replaced with apple cider vinegar -pending A1c -SSI and accuchekcs ACHS Code: Full PCP: OOT IVF: SL Diet: HH, fluid restrict, CC Dispo: Admit tele obs, will diurese w/ IV lasix and monitor, LOS < 48hrs Addendum - Attending - Attending Attestation Date/Time: 05/08/20 1121 I personally evaluated the patient and discussed the management with Dr. Cornejo. I agree with the History, Examination, Assessment and Plan documented above with any addition or exceptions noted below.
[2020-05-08] MEDS ORDERED: Spironolactone 25 MG TAB PO SCH (09:00)
[2020-05-08] MEDS ORDERED: Spironolactone 100 MG TAB PO SCH (09:45)
[2020-05-08] MEDS: Clopidogrel Bisulfate 75 MG TAB PO SCH (10:37)
[2020-05-08] MEDS: Multivitamin W/ Minerals 1 TAB PO SCH (10:37)
[2020-05-08] MEDS: Apixaban 5 MG TAB PO SCH ×2 (10:38→22:12)
[2020-05-08] MEDS: Pioglitazone HCl 45 MG TAB PO SCH (10:38)
[2020-05-08] MEDS: Atorvastatin Calcium 40 MG TAB PO SCH (22:12)
[2020-05-08] MEDS: Ezetimibe 10 MG TAB PO SCH (22:13)
[2020-05-08] MEDS: glipiZIDE 5 MG TAB PO SCH (22:13)
[2020-05-09] MEDS: Furosemide 40 MG/4 ML VIAL SLOW IVP SCH ×2 (05:28→14:18)
--- NOTE | 2020-05-09 05:55 | PDOC.FM ---
- Subjective Subjective: Pt says he is feeling much better this morning, his SOB and edema have improved. He has been urinating without measuring it, but states he went "at least 30 times" yesterday. Still has some edema and pain in LE. - Objective Vital Signs & Weight: Vital Signs (12 hours) Temp Pulse Resp BP Pulse Ox 05/09/20 04:00 97.6 F 90 18 118/61 95 05/08/20 21:35 97 05/08/20 21:30 98.8 F 77 16 108/56 L 97 Weight Admit Weight 163.248 kg Weight 160.175 kg I&O: 05/07/20 05/08/20 05/09/20 06:59 06:59 06:59 Intake Total 900 Output Total 200 Balance 700 Result Diagrams: 05/07/20 13:16 05/09/20 06:19 Phys Exam - Physical Examination Constitutional: NAD HEENT: moist MMs, sclera anicteric Neck: supple, full ROM Respiratory: no wheezing, clear to auscultation bilateral Cardiovascular: no significant murmur irregular rhythm Gastrointestinal: soft, non-tender Musculoskeletal: pulses present, edema present Neurological: non-focal, moves all 4 limbs Psychiatric: normal affect, A&O x 3 Deviation from normal: b/l LE ulcerations Dx/Plan - Plan Plan: #Volume Overload 2/2 suspected HF -continue Lasix 40mg IV bid, increased spironolactone to 100mg daily -Diet: HH, low sodium, fluid restrict -daily weights: down 3 kg -strict I/Os: had not been measuring voids, encouraged him to start today -continue to monitor with daily BMP #Venous Insufficiency -chronic b/l LE skin changes -wound care consulted: b/l LE ulcerations #cirrhosis 2/2 NAFLD -volume overload likely also due to cirrhosis -MELD 14 -is on liver transplant list -continue home meds #a fib -on eliquis -rate controlled #CAD s/p stent -stents placed about 2 months ago -on plavix #YANICK -on cpap at home -ordered cpap here #CKD 3 -BUN/Cr 36/1.27, GFR 57. Improving -sees Dr. Kay outpatient -has upcoming surgery in [place] for lesion on R kidney #DM2 -A1c 5.9 -continue home meds -SSI and accuchekcs ACHS Code: Full PCP: OOT IVF: SL Diet: HH, fluid restrict, CC Dispo: Admit tele inpatient, will diurese w/ IV lasix and monitor, LOS >48hrs Addendum - Attending - Attending Attestation Date/Time: 05/09/20 3770 I personally evaluated the patient and discussed the management with Dr. Cornejo. I agree with the History, Examination, Assessment and Plan documented above with any addition or exceptions noted below.
[2020-05-09 06:48] LABS: Anion Gap 13 mmol/L (10-20); BUN (Urea Nitrogen) 31 mg/dL (8.4-25.7); Calc. Creatinine Clearance 128 mL/min (70-130); Calcium 8.7 mg/dL (7.8-10.44); Carbon Dioxide 26 mmol/L (23-31); Chloride 103 mmol/L (98-107); Estimated GFR-MDRD 55; Glucose 111 mg/dL (80-115); Potassium 3.9 mmol/L (3.5-5.1); Sodium 138 mmol/L (136-145)
[2020-05-09] MEDS: Multivitamin W/ Minerals 1 TAB PO SCH (09:10)
[2020-05-09] MEDS: Spironolactone 100 MG TAB PO SCH (09:10)
[2020-05-09] MEDS: Pioglitazone HCl 45 MG TAB PO SCH (09:10)
[2020-05-09] MEDS: Apixaban 5 MG TAB PO SCH ×2 (09:10→21:14)
[2020-05-09] MEDS: Clopidogrel Bisulfate 75 MG TAB PO SCH (09:10)
[2020-05-09] MEDS: Ezetimibe 10 MG TAB PO SCH (21:14)
[2020-05-09] MEDS: Atorvastatin Calcium 40 MG TAB PO SCH (21:14)
[2020-05-09] MEDS: glipiZIDE 5 MG TAB PO SCH (21:15)
--- NOTE | 2020-05-10 06:06 | PDOC.FM ---
- Subjective Subjective: Pt resting comfortably. Says he still has some pain in his R leg but improving. Denies SOB. - Objective Vital Signs & Weight: Vital Signs (12 hours) Temp Pulse Resp BP Pulse Ox 05/10/20 00:56 98.4 F 85 18 100/57 L 99 05/09/20 21:37 98.1 F 84 22 H 102/60 98 05/09/20 20:00 98 Weight Admit Weight 163.248 kg Weight 160.175 kg I&O: 05/08/20 05/09/20 05/10/20 06:59 06:59 06:59 Intake Total 900 500 960 Output Total 200 2650 Balance 700 500 -1690 Result Diagrams: 05/07/20 13:16 05/10/20 09:28 Phys Exam - Physical Examination Constitutional: NAD HEENT: moist MMs, sclera anicteric Neck: supple, full ROM Respiratory: no wheezing, no rales, clear to auscultation bilateral Cardiovascular: no significant murmur irregular rhythm Gastrointestinal: soft, non-tender, no distention Musculoskeletal: edema present Neurological: non-focal, moves all 4 limbs Psychiatric: normal affect, A&O x 3 Deviation from normal: b/l LE chronic skin changes, wounds covered, RLE no erythema, mod TTP Dx/Plan - Plan Plan: #Volume Overload 2/2 suspected HF -continue Lasix 40mg IV bid -Diet: HH, low sodium, fluid restrict -daily weights: down from 162kg to 156kg -strict I/Os: -1690 mL in last 24 hrs -not quite at baseline, will continue diuresis #Venous Insufficiency -chronic b/l LE skin changes -wound care consulted: b/l LE ulcerations -contact wound care about RLE, stated it did not appear to be infected, will con tinue to monitor and treat with abx if needed for soft tissue infection #cirrhosis 2/2 NAFLD -volume overload likely also due to cirrhosis -MELD 14 -is on liver transplant list -increased spironolactone to 100mg #a fib -on eliquis -rate controlled #CAD s/p stent -stents placed about 2 months ago -on plavix #YANICK -on cpap at home -ordered cpap here #CKD 3 -BUN/Cr 36/1.27, GFR 57. Improving -sees Dr. Kay outpatient -has upcoming surgery in [place] for lesion on R kidney #DM2 -A1c 5.9 -SSI and accuchekcs ACHS -stopped pioglitazone due to potential side effect of edema Code: Full PCP: OOT IVF: SL Diet: HH, fluid restrict, CC Dispo: Admit tele inpatient, will diurese w/ IV lasix and monitor, LOS >48hrs Addendum - Attending - Attending Attestation Date/Time: 05/10/20 2888 I personally evaluated the patient and discussed the management with Dr. Cornejo. I agree with the History, Examination, Assessment and Plan documented above with any addition or exceptions noted below.
[2020-05-10] MEDS: Furosemide 40 MG/4 ML VIAL SLOW IVP SCH ×2 (06:34→13:59)
[2020-05-10] MEDS: Spironolactone 100 MG TAB PO SCH (08:17)
[2020-05-10] MEDS: Clopidogrel Bisulfate 75 MG TAB PO SCH (08:17)
[2020-05-10] MEDS: Apixaban 5 MG TAB PO SCH ×2 (08:17→20:38)
[2020-05-10] MEDS: Multivitamin W/ Minerals 1 TAB PO SCH (08:18)
[2020-05-10 10:25] LABS: ALT (SGPT) 27 U/L (8-55); AST (SGOT) 32 U/L (5-34); Albumin 3.9 g/dL (3.4-4.8); Alkaline Phosphatase 93 U/L (40-110); Anion Gap 15 mmol/L (10-20); BUN (Urea Nitrogen) 34 mg/dL (8.4-25.7); Bilirubin, Total 1.2 mg/dL (0.2-1.2); Calc. Creatinine Clearance 111 mL/min (70-130); Calcium 9.5 mg/dL (7.8-10.44); Carbon Dioxide 29 mmol/L (23-31); Chloride 100 mmol/L (98-107); Estimated GFR-MDRD 48; Globulin 3.7 g/dL (2.4-3.5); Glucose 148 mg/dL (80-115); Potassium 4.1 mmol/L (3.5-5.1); Protein, Total 7.6 g/dL (5.8-8.1); Sodium 140 mmol/L (136-145)
[2020-05-10] MEDS: glipiZIDE 5 MG TAB PO SCH (20:37)
[2020-05-10] MEDS: Atorvastatin Calcium 40 MG TAB PO SCH (20:38)
[2020-05-10] MEDS: Ezetimibe 10 MG TAB PO SCH (20:38)
[2020-05-11 04:51] LABS: Anion Gap 13 mmol/L (10-20); BUN (Urea Nitrogen) 36 mg/dL (8.4-25.7); Calc. Creatinine Clearance 126 mL/min (70-130); Carbon Dioxide 27 mmol/L (23-31); Chloride 102 mmol/L (98-107); Estimated GFR-MDRD 56; Glucose 70 mg/dL (80-115); Sodium 138 mmol/L (136-145)
[2020-05-11] MEDS: Furosemide 40 MG/4 ML VIAL SLOW IVP SCH (05:19)
[2020-05-11 05:41] VITALS: BMI 42.2
--- NOTE | 2020-05-11 05:42 | PDOC.FM ---
- Subjective Subjective: Pt doing well this morning. Says he feels back at baseline and is ready to go home. No CP, SOB, N/V. - Objective Vital Signs & Weight: Vital Signs (12 hours) Temp Pulse Resp BP BP Pulse Ox 05/11/20 05:00 97.9 F 73 18 126/66 98 05/11/20 00:00 99 05/10/20 21:32 99 05/10/20 20:17 98.1 F 71 18 133/61 99 05/10/20 20:10 99.0 F 81 17 119/58 L 98 Weight Admit Weight 163.248 kg Weight 156.308 kg I&O: 05/09/20 05/10/20 05/11/20 06:59 06:59 06:59 Intake Total 500 1200 1140 Output Total 3550 3075 Balance 500 -4960 -9507 Result Diagrams: 05/07/20 13:16 05/11/20 04:02 Phys Exam - Physical Examination Constitutional: NAD HEENT: moist MMs, sclera anicteric Neck: supple, full ROM Respiratory: no wheezing, clear to auscultation bilateral Cardiovascular: no significant murmur irregular rhythm Gastrointestinal: soft, non-tender, no distention Musculoskeletal: pulses present, edema present Neurological: non-focal, moves all 4 limbs Psychiatric: normal affect, A&O x 3 Deviation from normal: b/l LE chronic skin changes w/ ulceration Dx/Plan - Plan Plan: #Volume Overload 2/2 suspected HF -stopped IV lasix and will give po, if diuresing well, will discharge today -Diet: HH, low sodium, fluid restrict -daily weights: down from 162kg to 156kg -strict I/Os: 4.5L since started measuring 2 days ago #Venous Insufficiency -chronic b/l LE skin changes -wound care consulted: b/l LE ulcerations #cirrhosis 2/2 NAFLD -volume overload likely also due to cirrhosis -MELD 14 -is on liver transplant list -increased spironolactone to 100mg #a fib -on eliquis -rate controlled #CAD s/p stent -stents placed about 2 months ago -on plavix #YANICK -on cpap at home -ordered cpap here #CKD 3 -BUN/Cr 36/1.27, GFR 57. Improving -sees Dr. Kay outpatient -has upcoming surgery in [place] for lesion on R kidney #DM2 -A1c 5.9 -SSI and accuchekcs ACHS -stopped pioglitazone due to potential side effect of edema Code: Full PCP: OOT IVF: SL Diet: HH, fluid restrict, CC Dispo: Admit tele inpatient, will diurese w/ po lasix and monitor, likely to discharge today. Addendum - Attending - Attending Attestation Date/Time: 05/11/20 5848 I personally evaluated the patient and discussed the management with Dr. Cornejo. I agree with the History, Examination, Assessment and Plan documented above with any addition or exceptions noted below. Patient feels well, back at baseline swelling per him. He should be stable for discharge today with continued outpatient diuretics as well as wound care.
[2020-05-11] MEDS: Spironolactone 100 MG TAB PO SCH (07:53)
[2020-05-11] MEDS: Clopidogrel Bisulfate 75 MG TAB PO SCH (07:53)
[2020-05-11] MEDS: Apixaban 5 MG TAB PO SCH (07:54)
[2020-05-11] MEDS: Multivitamin W/ Minerals 1 TAB PO SCH (07:54)
[2020-05-11] MEDS ORDERED: Furosemide 80 MG TAB PO SCH (09:00)
[2020-05-11 12:26] VITALS: BP 133/75; TEMP 97.5
--- NOTE | 2020-05-11 19:42 | DIS ---
DATE OF ADMISSION: 05/08/2020 DATE OF DISCHARGE: 05/11/2020 RESIDENT: Arlin Cornejo, PGY-1. ADMITTING ATTENDING: Gareth Son MD. DISCHARGE ATTENDING: Gareth Son MD. CONSULTS: None. PROCEDURES: None. PRIMARY DIAGNOSIS: Volume overload secondary to presumed heart failure. SECONDARY DIAGNOSES: 1. Venous insufficiency. 2. Cirrhosis secondary non-alcoholic fatty liver disease. 3. Atrial fibrillation. 4. Coronary artery disease status post stent. 5. Obstructive sleep apnea. 6. Chronic kidney disease 3. 7. Type 2 diabetes. DISCHARGE MEDICATIONS: 1. Spironolactone 100 mg daily. 2. Eliquis 5 mg b.i.d. 3. Aspirin 81 mg daily. 4. Atorvastatin 40 mg at bedtime. 5. Plavix 75 mg daily. 6. Zetia 10 mg daily. 7. Fenofibrate 160 mg daily. 8. Folic acid. 9. Vitamin 1 tablet daily. 10. Furosemide 40 mg daily. 11. Glipizide 5 mg daily. 12. Isosorbide mononitrate 60 mg daily. 13. Lactulose 15 to 30 mL daily. 14. Metoprolol succinate 50 mg p.o. b.i.d. 15. Centrum Silver 1 tab daily. DISCONTINUED MEDICATIONS: Pioglitazone. HISTORY OF PRESENT ILLNESS: The patient is a 65-year-old male with a history of atrial fibrillation, cirrhosis, and type 2 diabetes, who presents with shortness of breath and edema. He had noticed increased swelling for the past week, gaining 30 pounds. Recently started to have increasing shortness of breath and positive orthopnea. He normally takes 40 mg of Lasix daily, but increased to 80 for 5 days with no relief of symptoms. He is currently being seen by multiple doctors in [place]. One for recent placement of cardiac stents about 2 months ago. 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 Also, on the liver transplant list for cirrhosis secondary to nonalcoholic fatty liver disease. Chest x-ray showed cardiomegaly without evidence of congestive heart failure. Labs: White count 4.5, hemoglobin 11, hematocrit 32.5. Chemistry; BNP was 214, BUN 35, creatinine 1.55. The patient was admitted for diuresis. 40 mg of Lasix IV was administered twice a day. Strict I's and O's and daily weights were recorded. At the end of the stay, the patient diuresed over 4-1/2 L, although first day to day and half was not measured and lost approximately 7 kg of weight. The patient also noted to have chronic venous and lower extremity changes, skin changes with bilateral ulcerations. Wound Care was consulted and dressings were applied. Pain improved over hospital course. The patient stated he felt back to baseline and felt he was stable to be discharged home. We adjusted his medications. His spironolactone was increased to 100 mg, and he will stay on his current dose of Lasix 40 mg daily. DISPOSITION: Stable. DISCHARGE INSTRUCTIONS: Location: Home. Diet: Heart healthy, consistent carb. Activity: As tolerated. Follow up with PCP. Job ID: [id number]
== END 2020-05-11 15:59 | disposition home or self-care (01) | DRG 292 ==
LOC: ERS 12:50 → 2SW 15:21 → OBSVTOIN 05-08 16:46 → 2NO 05-10 15:28
PROVIDERS: ADMIT Student in an Organized Health Care Education/Training Program; ATTEND Student in an Organized Health Care Education/Training Program
DX: I50.31 Acute diastolic (congestive) heart failure (principal); L97.829 Non-pressure chronic ulcer of other part of left lower leg with unspecified severity; L97.819 Non-pressure chronic ulcer of other part of right lower leg with unspecified severity; I48.91 Unspecified atrial fibrillation; E11.22 Type 2 diabetes mellitus with diabetic chronic kidney disease; G47.33 Obstructive sleep apnea (adult) (pediatric); I25.10 Atherosclerotic heart disease of native coronary artery without angina pectoris; K74.69 Other cirrhosis of liver; K76.0 Fatty (change of) liver, not elsewhere classified; I87.2 Venous insufficiency (chronic) (peripheral); N28.9 Disorder of kidney and ureter, unspecified; N18.30 Chronic kidney disease, stage 3 unspecified; Z88.5 Allergy status to narcotic agent; Z79.82 Long term (current) use of aspirin; Z95.5 Presence of coronary angioplasty implant and graft; Z90.49 Acquired absence of other specified parts of digestive tract; Z89.421 Acquired absence of other right toe(s)
CPT/HCPCS: 36415; 36416; 71045; 80048; 80053; 83036; 83880; 84484; 85025; 85610; 85730; 93005; 96365; 96375; J1940; J3490